=== PATIENT | male | born 1935 ===

== ENCOUNTER → 2016-09-01 | Outpatient (CLI) | payer OTHER | END | disposition home or self-care (01) | LOC: C.PATHSPEC 14:35 | PROVIDERS: ATTEND Dermatology | DX: L57.0 Actinic keratosis (principal) ==

== ENCOUNTER 2021-06-13 09:13 | Inpatient (IN) ==
--- NOTE | 2021-06-13 09:33 | Emergency Department Note ---
Impression & Plan Weakness, Fever, Influenza A, Acute alteration in mental status, Head injury, Thrombocytopenia, HOLDEN (acute kidney injury) ED Provider Note NAME: LEEANNE RIBERA AGE: 85 SEX: M : 1935 ARRIVES VIA: Ambulance INFORMANT: Patient, EMS ED PROVIDER(S): Arturo Lugo DO CHIEF COMPLAINT: Altered mental status HPI: The patient is an 85-year-old male who presented to the emergency department for an evaluation of altered mental status. The patient has a history of severe underlying dementia and is unable to provide most of the history. History was obtained from the prehospital personnel. According to the patient's report he had fallen yesterday. Today they noticed that he had a low- grade fever and was not acting appropriately. The patient normally is able to speak in full sentences but today is only giving 1 word answers and appears more confused than usual. The patient does not have any family members with him currently. The patient had no reported difficulty ambulating. He does not appear to have reported unilateral weakness. The patient has been compliant with his usual outpatient medications. It is unclear if he had a loss of consciousness. ROS: See above HPI for pertinent positives & negatives. A total of 10 systems reviewed and were otherwise negative. PAST MEDICAL HISTORY: See Below PAST SURGICAL HISTORY: See Below FAMILY HISTORY: See Below SOCIAL HISTORY: See Below HOME MEDICATIONS: See Below ALLERGIES: See Below VITALS: See Below PHYSICAL EXAMINATION: GENERAL: The patient is awake and looking around the room. Answers questions inappropriately and slowly. EYES: The conjunctivae are clear. The pupils are round and reactive. EARS, NOSE, MOUTH AND THROAT: The nose is without any evidence of any deformity. Mucous membranes are moist. NECK: The neck is nontender and supple. RESPIRATORY: Diminished breath sounds are noted in the left lung field. There was no definite rales rhonchi or wheezing. CARDIOVASCULAR: Tachycardic and regular heart sounds were noted to auscultation. There is no definite murmur. GASTROINTESTINAL: The abdomen is soft. Abdomen is nontender. MUSCULOSKELETAL/EXTREMITIES: There is no evidence of gross deformity full range of motion is noted in the hips and shoulders. SKIN: There is no obvious evidence of any rash. Trace pedal edema was noted bilaterally. Skin was warm. There is an abrasion on the top of the head with a dressing in place. NEUROLOGIC: Patient is awake and oriented to person only. Strength was di minished but symmetric. There was no facial droop. MEDICAL DECISION MAKING: The patient is an 85-year-old male who presented to the emergency department by ambulance for an evaluation of alteration of mental status and fever. The patient presented from his personal senior care. The patient also had a reported fall with a head injury. I discussed the patient's laboratory and radiographic studies with him and his significant other. He does have underlying dementia which appears to be worsening according to his significant other. No definite cause for his fever could be found. The patient was trying to ambulate but appears to have very significant difficulty with ambulation. Further radiographic studies were obtained but still no cause for the patient's presentation could be found. I discussed this case with the on-call [facility] hospitalist. They did ask for a flu swab which ultimately was positive. It is possible the patient's symptoms could be secondary to the flu. Given his age and comorbidities it was felt he may be a better candidate for inpatient management especially given the fact that the patient is still unable to walk. Triage Nursing notes reviewed. Prior medical records reviewed Vital Signs: reviewed and remarkable for tachycardia and fever. Differential diagnosis: Infection, hypoglycemia, electrolyte abnormalities, overdose, toxicologic, cardiac sources, intracerebral event, neurologic, trauma, as well as other pa thologies. ER treatment provided: See below Diagnostics interpreted by me: ECG: EKG was obtained in the emergency department. My interpretation is sinus tachycardia 112 bpm. PVCs were noted. Right bundle branch block pattern was noted. No previous tracing was available. Cardiac Monitoring: An order was placed for continuous cardiac monitoring. The monitor shows a rate of 100 bpm with sinus rhythm. Laboratory studies: As stated above and show below. Imaging studies: See below Consultation(s): I discussed this case with Dr. Alaniz who is on-call for the [facility] hospitalist group. They have agreed to evaluate the patient in the emergency department for further management and disposition. Past Med/Surg History Medical History (Updated 06/13/21 @ 17:09 by Arturo Lugo DO) GERD (gastroesophageal reflux disease) High cholesterol HTN (hypertension) Neurogenic claudication due to lumbar spinal stenosis Spinal stenosis of lumbar region Surgical History Surgical history unknown Family History Father Memory loss Social History Smoking Status: Never smoker Hx Alcohol Use: No Hx Substance Use: No Preferred Language: Marshallese Communication Ability: Effective Visual Impairment: Limited Hearing Ability: Hard of Hearing Beliefs That Will Affect Care: None marital status: Current Living Situation: Spouse current occupational status: retired Feels Safe at Home: Yes Allergies Allergies Allergy/AdvReac Type Severity Reaction Status Date / Time No Known Allergies Allergy Verified 06/13/21 10:39 Home Meds Home Medications Medication Instructions Recorded Confirmed cholecalciferol (vitamin D3) 50 2,000 unit PO DAILY cap 02/28/19 06/13/21 mcg (2,000 unit) capsule losartan 50 mg tablet 50 mg PO DAILY tab 07/23/19 06/13/21 bimatoprost 0.01 % eye drops 1 drops OP HS 01/10/20 06/13/21 (Gabriele) pantoprazole 40 mg tablet,delayed 40 mg PO DAILY 04/14/20 06/13/21 release furosemide 40 mg tablet (Lasix) 40 mg PO DAILY PRN 01/06/21 06/13/21 metoprolol tartrate 25 mg tablet 25 mg PO BID #60 tab 04/28/21 06/13/21 simvastatin 40 mg tablet 40 mg PO DAILY 04/28/21 06/13/21 albuterol sulfate 2.5 mg INHALATION Q4H PRN 06/13/21 06/13/21 albuterol sulfate 90 mcg/actuation 2 puff INHALATION Q4H PRN 06/13/21 06/13/21 aerosol inhaler ascorbic acid (vitamin C) 500 mg 500 mg PO DAILY 06/13/21 06/13/21 tablet (Vitamin C) benzonatate 200 mg capsule 200 mg PO TID PRN 06/13/21 06/13/21 mirtazapine 15 mg tablet 22.5 mg PO HS 06/13/21 06/13/21 timolol 0.5 % eye drops 1 drp OPHTHALMIC (EYE) DAILY 06/13/21 06/13/21 vit C 250 mg-vit E 90 mg-zinc 40 1 tab PO BID 06/13/21 06/13/21 mg-copper 1 [id number] capsule (PreserVision AREDS-2) Previous Rx's Medication Instructions Recorded memantine 28 mg capsule 28 mg PO DAILY #90 ea 04/16/21 sprinkle,extended release 24hr (Namenda XR) donepezil 10 mg tablet 10 mg PO HS 90 Days #90 tab 05/27/21 Results & Data (ED) Vital Signs Vital Signs - 24 hr 06/13/21 09:18 06/13/21 09:19 06/13/21 09:30 Temperature 37.9 C H Temperature Source Oral Pulse Rate 116 H 112 H 112 H Pulse Rate [Apical] Pulse Rate from SpO2 Sensor 113 H 111 H Respiratory Rate 30 H 28 H 30 H Respiratory Effort / Characteristics Non-Labored Spontaneous Respiratory Depth Normal Blood Pressure 119/82 Blood Pressure [Right Arm] Blood Pressure Mean 94 Blood Pressure Mean [Right Arm] Blood Pressure Position Sitting Blood Pressure Position [Right Arm] Pulse Oximetry 89 L 95 96 Oxygen Delivery Method Room Air Oxygen Flow Rate Sepsis Recent Fever Within 48 Hours Yes Sepsis New/Unexplained Change in Mental Status Yes Sepsis Action Taken by Nursing Physician Notified Oxygen Flow Rate - Titration 2 Fraction of Inspired Oxygen - Titration 96 06/13/21 09:45 06/13/21 10:00 06/13/21 10:15 Temperature Temperature Source Pulse Rate 115 H 107 H 103 H Pulse Rate [Apical] Pulse Rate from SpO2 Sensor 116 H 100 H Respiratory Rate 22 28 H Respiratory Effort / Characteristics Respiratory Depth Blood Pressure Blood Pressure [Right Arm] Blood Pressure Mean Blood Pressure Mean [Right Arm] Blood Pressure Position Blood Pressure Position [Right Arm] Pulse Oximetry 97 95 Oxygen Delivery Method Oxygen Flow Rate Sepsis Recent Fever Within 48 Hours Sepsis New/Unexplained Change in Mental Status Sepsis Action Taken by Nursing Oxygen Flow Rate - Titration Fraction of Inspired Oxygen - Titration 06/13/21 10:24 06/13/21 10:30 06/13/21 10:46 Temperature Temperature Source Pulse Rate 105 H 102 H 104 H Pulse Rate [Apical] Pulse Rate from SpO2 Sensor 101 H 103 H Respiratory Rate 29 H 27 H Respiratory Effort / Characteristics Respiratory Depth Blood Pressure Blood Pressure [Right Arm] Blood Pressure Mean Blood Pressure Mean [Right Arm] Blood Pressure Position Blood Pressure Position [Right Arm] Pulse Oximetry 95 95 97 Oxygen Delivery Method Nasal Cannula Oxygen Flow Rate 2 Sepsis Recent Fever Within 48 Hours Sepsis New/Unexplained Change in Mental Status Sepsis Action Taken by Nursing Oxygen Flow Rate - Titration Fraction of Inspired Oxygen - Titration 06/13/21 10:56 06/13/21 11:00 06/13/21 11:15 Temperature Temperature Source Pulse Rate 102 H 100 H Pulse Rate [Apical] 102 H Pulse Rate from SpO2 Sensor 103 H 90 Respiratory Rate 26 H 28 H 30 H Respiratory Effort / Characteristics Respiratory Depth Blood Pressure 117/62 Blood Pressure [Right Arm] 117/52 L Blood Pressure Mean 80 Blood Pressure Mean [Right Arm] 73 Blood Pressure Position Blood Pressure Position [Right Arm] Lying Pulse Oximetry 95 94 94 Oxygen Delivery Method Nasal Cannula Oxygen Flow Rate 2 Sepsis Recent Fever Within 48 Hours Sepsis New/Unexplained Change in Mental Status Sepsis Action Taken by Nursing Oxygen Flow Rate - Titration Fraction of Inspired Oxygen - Titration 06/13/21 11:30 06/13/21 11:45 06/13/21 12:00 Temperature Temperature Source Pulse Rate 111 H 99 H 102 H Pulse Rate [Apical] Pulse Rate from SpO2 Sensor 106 H 86 100 H Respiratory Rate 26 H 26 H 27 H Respiratory Effort / Characteristics Respiratory Depth Blood Pressure 116/64 95/65 L Blood Pressure [Right Arm] Blood Pressure Mean 81 75 Blood Pressure Mean [Right Arm] Blood Pressure Position Blood Pressure Position [Right Arm] Pulse Oximetry 94 93 94 Oxygen Delivery Method Oxygen Flow Rate Sepsis Recent Fever Within 48 Hours Sepsis New/Unexplained Change in Mental Status Sepsis Action Taken by Nursing Oxygen Flow Rate - Titration Fraction of Inspired Oxygen - Titration 06/13/21 12:15 06/13/21 12:30 06/13/21 12:45 Temperature Temperature Source Pulse Rate 103 H 99 H 96 H Pulse Rate [Apical] Pulse Rate from SpO2 Sensor 101 H 92 H 94 H Respiratory Rate 23 29 H 28 H Respiratory Effort / Characteristics Non-Labored Spontaneous Respiratory Depth Blood Pressure 115/55 L Blood Pressure [Right Arm] Blood Pressure Mean 75 Blood Pressure Mean [Right Arm] Blood Pressure Position Blood Pressure Position [Right Arm] Pulse Oximetry 96 94 95 Oxygen Delivery Method Room Air Room Air Oxygen Flow Rate 2 Sepsis Recent Fever Within 48 Hours Sepsis New/Unexplained Change in Mental Status Sepsis Action Taken by Nursing Oxygen Flow Rate - Titration Fraction of Inspired Oxygen - Titration 06/13/21 13:00 06/13/21 13:15 06/13/21 13:30 Temperature Temperature Source Pulse Rate 92 H 110 H 99 H Pulse Rate [Apical] Pulse Rate from SpO2 Sensor 90 112 H 101 H Respiratory Rate 26 H 17 25 H Respiratory Effort / Characteristics Respiratory Depth Blood Pressure 99/56 L Blood Pressure [Right Arm] Blood Pressure Mean 70 Blood Pressure Mean [Right Arm] Blood Pressure Position Blood Pressure Position [Right Arm] Pulse Oximetry 96 98 95 Oxygen Delivery Method Room Air Room Air Room Air Oxygen Flow Rate Sepsis Recent Fever Within 48 Hours Sepsis New/Unexplained Change in Mental Status Sepsis Action Taken by Nursing Oxygen Flow Rate - Titration Fraction of Inspired Oxygen - Titration 06/13/21 13:45 06/13/21 14:00 06/13/21 14:15 Temperature Temperature Source Pulse Rate 100 H 92 H 96 H Pulse Rate [Apical] Pulse Rate from SpO2 Sensor 102 H 91 H 101 H Respiratory Rate 27 H 26 H 29 H Respiratory Effort / Characteristics Respiratory Depth Blood Pressure Blood Pressure [Right Arm] Blood Pressure Mean Blood Pressure Mean [Right Arm] Blood Pressure Position Blood Pressure Position [Right Arm] Pulse Oximetry 91 91 91 Oxygen Delivery Method Room Air Room Air Room Air Oxygen Flow Rate Sepsis Recent Fever Within 48 Hours Sepsis New/Unexplained Change in Mental Status Sepsis Action Taken by Nursing Oxygen Flow Rate - Titration Fraction of Inspired Oxygen - Titration 06/13/21 14:30 06/13/21 15:00 06/13/21 15:15 Temperature Temperature Source Pulse Rate 106 H 103 H 96 H Pulse Rate [Apical] Pulse Rate from SpO2 Sensor 133 H 102 H 98 H Respiratory Rate 18 18 24 Respiratory Effort / Characteristics Respiratory Depth Blood Pressure 108/73 103/69 Blood Pressure [Right Arm] Blood Pressure Mean 84 80 Blood Pressure Mean [Right Arm] Blood Pressure Position Blood Pressure Position [Right Arm] Pulse Oximetry 95 96 96 Oxygen Delivery Method Room Air Room Air Oxygen Flow Rate Sepsis Recent Fever Within 48 Hours Sepsis New/Unexplained Change in Mental Status Sepsis Action Taken by Nursing Oxygen Flow Rate - Titration Fraction of Inspired Oxygen - Titration 06/13/21 15:30 Temperature Temperature Source Pulse Rate 100 H Pulse Rate [Apical] Pulse Rate from SpO2 Sensor 99 H Respiratory Rate 28 H Respiratory Effort / Characteristics Respiratory Depth Blood Pressure 116/71 Blood Pressure [Right Arm] Blood Pressure Mean 86 Blood Pressure Mean [Right Arm] Blood Pressure Position Blood Pressure Position [Right Arm] Pulse Oximetry 96 Oxygen Delivery Method Room Air Oxygen Flow Rate Sepsis Recent Fever Within 48 Hours Sepsis New/Unexplained Change in Mental Status Sepsis Action Taken by Nursing Oxygen Flow Rate - Titration Fraction of Inspired Oxygen - Titration Home Medications Current Medication List: was personally reviewed by ga Laboratory Data Attestation: I reviewed the patient's lab results. Result diagrams: 06/13/21 09:38 06/13/21 09:38 Lab Results 06/13/21 06/13/21 06/13/21 Range/Units 09:38 09:38 09:38 WBC 10.03 (4.8-10.8) K/uL RBC 4.49 L (4.7-6.1) M/uL Hgb 14.2 (14.0-18.0) g/dL Hct 42.1 (42-52) % MCV 93.8 (80-100) fL MCH 31.6 (25-34) pg MCHC 33.7 (32-36) g/dL RDW Std Deviation 47.4 H (36.4-46.3) fL RDW Coeff of Juan Carlos 13.7 (11.5-14.5) % Plt Count 120 L (130-400) K/uL MPV 10.0 (7.4-10.4) fL Immature Gran % (Auto) 0.2 % Neut % (Auto) 86.8 % Lymph % (Auto) 5.2 % [place] % (Auto) 7.8 % Eos % (Auto) 0.0 % Baso % (Auto) 0.0 % Neut # (Auto) 8.71 H (1.4-6.5) K/uL Lymph # (Auto) 0.52 L (1.2-3.4) K/uL [place] # (Auto) 0.78 H (0.11-0.59) K/uL Eos # (Auto) 0.00 (0-0.5) K/uL Baso # (Auto) 0.00 (0-0.2) K/uL Immature Gran # (Auto) 0.02 (0.00-0.02) K/uL PT 10.9 (9.0-12.0) Seconds INR 1.1 (0.9-1.1) APTT 33.7 H (21.0-31.0) Seconds PTT Ratio 1.3 Sodium 138 (136-145) mmol/L Potassium 4.2 (3.5-5.1) mmol/L Chloride 103 (98-107) mmol/L Carbon Dioxide 25 (21-32) mmol/L Anion Gap 10.0 (3-11) BUN 27 H (7-18) mg/dl Creatinine 1.63 H (0.6-1.4) mg/dl Est Cr Clr Drug Dosing Not Reportable Est GFR ( Amer) 43.9 ml/min Est GFR (Non-Af Amer) 37.8 ml/min BUN/Creatinine Ratio 16.6 (10-20) Glucose 119 H (70-99) mg/dl Lactate (0.4-2.0) mmol/L Calcium 8.9 (8.5-10.1) mg/dl Magnesium 1.9 (1.8-2.4) mg/dl Total Bilirubin 0.8 (0.2-1) mg/dl AST 27 (15-37) U/L ALT 26 (12-78) U/L Alkaline Phosphatase 83 (45-117) U/L Troponin I < 0.015 (0-0.045) ng/ml Total Protein 7.0 (6.4-8.2) gm/dl Albumin 3.2 L (3.4-5.0) gm/dl Globulin 3.8 (2.5-4.0) gm/dl Albumin/Globulin Ratio 0.8 L (0.9-2) Procalcitonin (0-0.5) ng/ml Urine Color Urine Appearance (Clear) Urine pH (4.5-7.5) Ur Specific [place] (1.000-1.030) Urine Protein (Negative) Urine Glucose (UA) (Negative) Urine Ketones (Negative) Urine Blood (Negative) Urine Nitrite (Negative) Urine Bilirubin (Negative) Urine Urobilinogen (Negative) Ur Leukocyte Esterase (Negative) Urine WBC (Auto) (0-5) /hpf Urine RBC (Auto) (0-4) /hpf U Hyaline Cast (Auto) (0-5) /lpf U Epithel Cells (Auto) (0-5) /lpf Urine Bacteria (Auto) (Negative) SARS-CoV-2 (PCR) (Negative) Influ A Molecular Assay (Negative) Influ B Molecular Assay (Negative) 06/13/21 06/13/21 06/13/21 Range/Units 09:38 09:38 09:38 WBC (4.8-10.8) K/uL RBC (4.7-6.1) M/uL Hgb (14.0-18.0) g/dL Hct (42-52) % MCV (80-100) fL MCH (25-34) pg MCHC (32-36) g/dL RDW Std Deviation (36.4-46.3) fL RDW Coeff of Juan Carlos (11.5-14.5) % Plt Count (130-400) K/uL MPV (7.4-10.4) fL Immature Gran % (Auto) % Neut % (Auto) % Lymph % (Auto) % [place] % (Auto) % Eos % (Auto) % Baso % (Auto) % Neut # (Auto) (1.4-6.5) K/uL Lymph # (Auto) (1.2-3.4) K/uL [place] # (Auto) (0.11-0.59) K/uL Eos # (Auto) (0-0.5) K/uL Baso # (Auto) (0-0.2) K/uL Immature Gran # (Auto) (0.00-0.02) K/uL PT (9.0-12.0) Seconds INR (0.9-1.1) APTT (21.0-31.0) Seconds PTT Ratio Sodium (136-145) mmol/L Potassium (3.5-5.1) mmol/L Chloride (98-107) mmol/L Carbon Dioxide (21-32) mmol/L Anion Gap (3-11) BUN (7-18) mg/dl Creatinine (0.6-1.4) mg/dl Est Cr Clr Drug Dosing Est GFR ( Amer) ml/min Est GFR (Non-Af Amer) ml/min BUN/Creatinine Ratio (10-20) Glucose (70-99) mg/dl Lactate 1.8 (0.4-2.0) mmol/L Calcium (8.5-10.1) mg/dl Magnesium (1.8-2.4) mg/dl Total Bilirubin (0.2-1) mg/dl AST (15-37) U/L ALT (12-78) U/L Alkaline Phosphatase (45-117) U/L Troponin I (0-0.045) ng/ml Total Protein (6.4-8.2) gm/dl Albumin (3.4-5.0) gm/dl Globulin (2.5-4.0) gm/dl Albumin/Globulin Ratio (0.9-2) Procalcitonin 0.21 (0-0.5) ng/ml Urine Color Urine Appearance (Clear) Urine pH (4.5-7.5) Ur Specific [place] (1.000-1.030) Urine Protein (Negative) Urine Glucose (UA) (Negative) Urine Ketones (Negative) Urine Blood (Negative) Urine Nitrite (Negative) Urine Bilirubin (Negative) Urine Urobilinogen (Negative) Ur Leukocyte Esterase (Negative) Urine WBC (Auto) (0-5) /hpf Urine RBC (Auto) (0-4) /hpf U Hyaline Cast (Auto) (0-5) /lpf U Epithel Cells (Auto) (0-5) /lpf Urine Bacteria (Auto) (Negative) SARS-CoV-2 (PCR) NEGATIVE (Negative) Influ A Molecular Assay (Negative) Influ B Molecular Assay (Negative) 06/13/21 06/13/21 Range/Units 10:57 15:37 WBC (4.8-10.8) K/uL RBC (4.7-6.1) M/uL Hgb (14.0-18.0) g/dL Hct (42-52) % MCV (80-100) fL MCH (25-34) pg MCHC (32-36) g/dL RDW Std Deviation (36.4-46.3) fL RDW Coeff of Juan Carlos (11.5-14.5) % Plt Count (130-400) K/uL MPV (7.4-10.4) fL Immature Gran % (Auto) % Neut % (Auto) % Lymph % (Auto) % [place] % (Auto) % Eos % (Auto) % Baso % (Auto) % Neut # (Auto) (1.4-6.5) K/uL Lymph # (Auto) (1.2-3.4) K/uL [place] # (Auto) (0.11-0.59) K/uL Eos # (Auto) (0-0.5) K/uL Baso # (Auto) (0-0.2) K/uL Immature Gran # (Auto) (0.00-0.02) K/uL PT (9.0-12.0) Seconds INR (0.9-1.1) APTT (21.0-31.0) Seconds PTT Ratio Sodium (136-145) mmol/L Potassium (3.5-5.1) mmol/L Chloride (98-107) mmol/L Carbon Dioxide (21-32) mmol/L Anion Gap (3-11) BUN (7-18) mg/dl Creatinine (0.6-1.4) mg/dl Est Cr Clr Drug Dosing Est GFR ( Amer) ml/min Est GFR (Non-Af Amer) ml/min BUN/Creatinine Ratio (10-20) Glucose (70-99) mg/dl Lactate (0.4-2.0) mmol/L Calcium (8.5-10.1) mg/dl Magnesium (1.8-2.4) mg/dl Total Bilirubin (0.2-1) mg/dl AST (15-37) U/L ALT (12-78) U/L Alkaline Phosphatase (45-117) U/L Troponin I (0-0.045) ng/ml Total Protein (6.4-8.2) gm/dl Albumin (3.4-5.0) gm/dl Globulin (2.5-4.0) gm/dl Albumin/Globulin Ratio (0.9-2) Procalcitonin (0-0.5) ng/ml Urine Color Dark Yellow Urine Appearance Cloudy A (Clear) Urine pH 5.0 (4.5-7.5) Ur Specific [place] 1.020 (1.000-1.030) Urine Protein 3+ H (Negative) Urine Glucose (UA) Negative (Negative) Urine Ketones 1+ H (Negative) Urine Blood Trace H (Negative) Urine Nitrite Negative (Negative) Urine Bilirubin Negative (Negative) Urine Urobilinogen Negative (Negative) Ur Leukocyte Esterase Negative (Negative) Urine WBC (Auto) 1-5 (0-5) /hpf Urine RBC (Auto) 0-4 (0-4) /hpf U Hyaline Cast (Auto) 1-5 (0-5) /lpf U Epithel Cells (Auto) 5-10 H (0-5) /lpf Urine Bacteria (Auto) Negative (Negative) SARS-CoV-2 (PCR) (Negative) Influ A Molecular Assay Positive A* (Negative) Influ B Molecular Assay Negative (Negative) Administered Medications Discontinued Medications Sodium Chloride (Nss 1000ml) 1,000 mls @ 999 mls/hr IV .[id number] ONE Stop: 06/13/21 13:11 Last Infusion: 06/13/21 13:16 Dose: 0 mls/hr Documented by: [id number] Admin: 06/13/21 12:15 Dose: 999 mls/hr Documented by: [id number] Acetaminophen (Ofirmev) 1,000 mg in 100 mls @ 400 mls/hr IV NOW STA Stop: 06/13/21 16:20 Last Infusion: 06/13/21 16:31 Dose: 0 mls/hr Documented by: [id number] Admin: 06/13/21 16:16 Dose: 400 mls/hr Documented by: [id number] Imaging Data Radiologist's Impression: Cervical Spine CT 06/13/21 09:21 CT cervical spine wo con CLINICAL HISTORY: Status post fall yesterday with abrasion to the head. Neck pain. Difficulty ambulating. COMPARISON STUDY: No previous studies for comparison. CT DOSE: 977.79 mGy.cm TECHNIQUE: Standard CT of the Cervical Spine was performed without IV contrast. A dose lowering technique was utilized adhering to the principles of ALARA. FINDINGS: Bones: Bones are osteopenic. There is no evidence for an acute fracture or malalignment. The heights of the vertebral bodies are maintained. The vertebral bodies are in anatomic alignment. The odontoid is intact. Degenerative changes are seen at the atlantoaxial articulation. Disc spaces:Moderate to marked disc space narrowing is present from C3 through C7 with endplate sclerosis and osteophyte formation. Apophyseal joints:Degenerative apophyseal joint disease is also seen throughout the cervical spine. Soft tissues:The prevertebral soft tissues are within normal limits. IMPRESSION: No acute abnormality. Degenerative disc and degenerative joint disease. ACT 112: Negative or not required by law. Electronically signed by: Lawrence Franklin M.D. 06/13/2021 10:20 AM Chest X-Ray 06/13/21 09:21 XR chest 1V portable CLINICAL HISTORY: SEPSIS. Evaluate cardiopulmonary status COMPARISON STUDY: No previous studies for comparison. TECHNIQUE: 1 view of the chest FINDINGS: Single frontal view of the chest demonstrates the cardiomediastinal silhouette to be within normal limits. There is a decreased inspiratory effort with elevation of the hemidiaphragms and crowding of the bronchovascular markings at the lung bases and centrally. The lungs are clear of alveolar opacities. There is no evidence for pleural effusion. There is no evidence for vascular congestion. There is no acute osseous pathology. IMPRESSION: There is a decreased inspiratory effort with otherwise no acute c hest disease. ACT 112: Negative or not required by law. Electronically signed by: Lawrence Franklin M.D. 06/13/2021 9:[address] 06/13/21 09:21 CT head/brain wo con CLINICAL HISTORY: Status post fall yesterday with abrasion to the top of the head. Difficulty ambulating. Pain. COMPARISON STUDY: No previous studies for comparison. TECHNIQUE: Standard CT of the Brain was performed without IV contrast. A dose lowering technique was utilized adhering to the principles of ALARA. FINDINGS: Extraaxial space: There is no evidence for subdural hematoma. There are no extra-axial fluid collections. Ventricles and cisterns: The ventricles are mildly to moderately dilated bilaterally. There is no evidence for midline shift or mass effect. Parenchyma: There is no subarachnoid or intraparenchymal hemorrhage. There is no evidence for an acute infarct or cerebral edema. There is mild cerebral cortical atrophy and decreased attenuation in the periventricular white matter representing remote small vessel disease. There are no gross mass lesions. Osseous structures: There is no evidence for an acute fracture. The visualized paranasal sinuses are clear. The mastoid air cells are clear bilaterally. Soft tissues: There is no evidence for focal soft tissue swelling. IMPRESSION: No acute intracerebral pathology. 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 ACT 112: Negative or not required by law. Electronically signed by: Lawrence Franklin M.D. 06/13/2021 10:18 AM Pelvis X-Ray 06/13/21 09:21 XR pelvis 1-2V routine CLINICAL HISTORY: Status post fall with pain. COMPARISON STUDY: No previous studies for comparison. TECHNIQUE: [A single AP radiograph was obtained. FINDINGS: There is no evidence for an acute fracture. There is mild narrowing hip joint spaces bilaterally. The bones are in anatomic alignment. The SI joints are intact bilaterally. The remaining visualized bones of the pelvis are intact. No focal soft tissue abnormalities identified. IMPRESSION: No acute abnormality. Mild hip joint space narrowing. ACT 112: Negative or not required by law. Electronically signed by: Lawrence Franklin M.D. 06/13/2021 9:[address] 06/13/21 13:58 CT lumbar spine wo con CLINICAL HISTORY: Status post fall with back pain COMPARISON STUDY: No previous studies for comparison. TECHNIQUE: Standard CT of the Lumbar Spine was performed without IV contrast. A dose lowering technique was utilized adhering to the principles of ALARA. FINDINGS: Bones: Bones are osteopenic. There is evidence for an old compression fracture of the L2 vertebral body. There is no evidence for an acute fracture or malalignment. The heights of the remaining lumbar vertebral bodies are maintained. The vertebral bodies are in anatomic alignment. Disc spaces: There is marked disc space narrowing at T12-L1, L4-L5 and L5-is 1 with vacuum disc phenomena present. No gross disc protrusion/herniation can be identified. Facet joints: Hypertrophic facet joint disease seen particularly at the lower 2 disc space levels. The sacroiliac joints are intact bilaterally. Soft tissues: The prevertebral soft tissues are within normal limits. IMPRESSION: 1. Osteopenia with old compression fracture of L2. No acute compression fracture. 2. 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 ACT 112: Negative or not required by law. Electronically signed by: Lawrence Franklin M.D. 06/13/2021 3:21 PM Abdomen/Pelvis CT 06/13/21 13:59 CT abd pelvis wo con CLINICAL HISTORY: Status post fall with back pain COMPARISON STUDY: No previous studies for comparison. CT DOSE: 371.60 mGy.cm TECHNIQUE: Standard CT of the Abdomen and Pelvis was performed without IV contrast. The patient did not receive oral contrast. A dose lowering technique was utilized adhering to the principles of ALARA. FINDINGS: Lung base: There is dependent edema in both lung bases along with mild bibasilar atelectasis. The heart is mildly enlarged with coronary artery calcification. Abdominal cavity: There is no evidence for abdominal mass, adenopathy or ascites. Liver: The liver is homogeneous in attenuation on these limited noncontrast images.. Spleen: The spleen is homogeneous in attenuation on these limited noncontrast images. Pancreas: The pancreas is homogeneous in attenuation on these limited noncontrast images. Gall Bladder: The gallbladder is well distended with no evidence for cholelithiasis, wall thickening or pericholecystic edema.. Adrenal glands: The adrenal glands are normal in size and attenuation on these limited noncontrast images. Kidneys: The kidneys are homogeneous in attenuation on these limited noncontrast images. There is no evidence for gross renal mass, calculus or hydronephrosis bilaterally. Bowel: There is a small hiatal hernia. The bowel loops are normally placed within the abdomen and pelvis without evidence for dilatation or obstruction. There is no evidence for mass lesion. There are no inflammatory changes present. There is no evidence for free air. There is a normal appendix in the right lower quadrant. Bladder: There is no evidence for focal bladder wall thickening, calculus or diverticulum. : There is no evidence for pelvic mass or adenopathy. Prostate is mildly enlarged. Vasculature: There is no evidence for focal aneurysmal dilatation of the abdominal aorta. Mild atherosclerotic calcification is present. Osseous structures: Degenerative changes are seen within the lumbar spine. Please see separate CT lumbar spine report for further evaluation. IMPRESSION: 1. No acute intra-abdominal or pelvic abnormality on these limited noncontrast images. 2. Nonacute findings as delineated above. 3. Please see CT of the lumbar spine report for further evaluation. ACT 112: Negative or not required by law. Electronically signed by: Lawrence Franklin M.D. 06/13/2021 3:17 PM Discharge Plan Visit Data Chief Complaint: Weakness Stated Complaint: DECREASE MENTAL STATUS/LOC, ED Provider: Arturo Lugo Discharge Problem: Weakness, Fever, Influenza A, Acute alteration in mental status, Head injury, Thrombocytopenia, HOLDEN (acute kidney injury) Patient Disposition: Being Evaluated by Hospitalist Forms Stand Alone Forms: [facility] Prescriptions Prescriptions: No Action memantine [Namenda XR] 28 mg capsule,sprinkle,ER 24hr 28 mg PO DAILY Qty: 90 RF: 1 donepezil 10 mg tablet 10 mg PO HS 90 Days Qty: 90 RF: 1 cholecalciferol (vitamin D3) 2,000 unit capsule 2,000 unit PO DAILY RF: 0 losartan 50 mg tablet 50 mg PO DAILY RF: 0 metoprolol tartrate 25 mg tablet 25 mg PO BID Qty: 60 RF: 0 simvastatin 40 mg tablet 40 mg PO DAILY RF: 0 pantoprazole 40 mg tablet,delayed release (DR/EC) 40 mg PO DAILY RF: 0 furosemide [Lasix] 40 mg tablet 40 mg PO DAILY PRN (Reason: Fluid Retention) RF: 0 Lumigan 0.01 % drops 1 drops OP HS RF: 0 albuterol sulfate 2.5 mg /3 mL (0.083 %) Solution For Nebulization 2.5 mg INHALATION Q4H PRN (Reason: Shortness Of Breath Or Wheezing) RF: 0 benzonatate [Tessalon] 200 mg Capsule 200 mg PO TID PRN (Reason: Cough) RF: 0 ascorbic acid (vitamin C) [Vitamin C] 500 mg Tablet 500 mg PO DAILY RF: 0 timolol 0.5 % Drops 1 drp OPHTHALMIC (EYE) DAILY RF: 0 albuterol sulfate 90 mcg/actuation Hfa Aerosol Inhaler 2 puff INHALATION Q4H PRN (Reason: Shortness Of Breath Or Wheezing) RF: 0 PreserVision AREDS-2 250-90-40-1 mg Capsule 1 tab PO BID RF: 0 mirtazapine 15 mg tablet 22.5 mg PO HS RF: 0 Referrals Referrals: Henrry Brito D.O. [Primary Care Provider] -
[2021-06-13 09:52] LABS: Hematocrit (blood only) 42.1 % (42-52); Hemoglobin 14.2 g/dL (14.0-18.0); Immature Granulocytes # (auto) 0.02 K/uL (0.00-0.02); Immature Granulocytes % (auto) 0.2 %; Lymphocytes # (auto) 0.52 K/uL (1.2-3.4); Lymphocytes % (auto) 5.2 %; Mean Corpuscular Hemoglobin 31.6 pg (25-34); Mean Corpuscular Hgb Conc 33.7 g/dL (32-36); Mean Corpuscular Volume 93.8 fL (80-100); Monocytes # (auto) 0.78 K/uL (0.11-0.59); Monocytes % (auto) 7.8 %; Neutrophils # (auto) 8.71 K/uL (1.4-6.5); Neutrophils % (auto) 86.8 %; Platelet Count 120 K/uL (130-400); RDW Coefficient of Variation 13.7 % (11.5-14.5); RDW Standard Deviation 47.4 fL (36.4-46.3); Red Blood Count 4.49 M/uL (4.7-6.1); White Blood Count 10.03 K/uL (4.8-10.8)
--- NOTE | 2021-06-13 09:55 | XRay Report ---
XR chest 1V portable CLINICAL HISTORY: SEPSIS. Evaluate cardiopulmonary status COMPARISON STUDY: No previous studies for comparison. TECHNIQUE: 1 view of the chest FINDINGS: Single frontal view of the chest demonstrates the cardiomediastinal silhouette to be within normal li mits. There is a decreased inspiratory effort with elevation of the hemidiaphragms and crowding of th e bronchovascular markings at the lung bases and centrally. The lungs are clear of alveolar opacities . There is no evidence for pleural effusion. There is no evidence for vascular congestion. There is n o acute osseous pathology. IMPRESSION: There is a decreased inspiratory effort with otherwise no acute chest disease. ACT 112: Negative or not required by law. Electronically signed by: Lawrence Franklin M.D. 06/13/2021 9:53 AM
--- NOTE | 2021-06-13 09:58 | XRay Report ---
XR pelvis 1-2V routine CLINICAL HISTORY: Status post fall with pain. COMPARISON STUDY: No previous studies for comparison. TECHNIQUE: [A single AP radiograph was obtained. FINDINGS: There is no evidence for an acute fracture. There is mild narrowing hip joint spaces bilaterally. The bones are in anatomic alignment. The SI joints are intact bilaterally. The remaining visualized bone s of the pelvis are intact. No focal soft tissue abnormalities identified. IMPRESSION: No acute abnormality. Mild hip joint space narrowing. ACT 112: Negative or not required by law. Electronically signed by: Lawrence Franklin M.D. 06/13/2021 9:57 AM
[2021-06-13 10:09] LABS: INR 1.1 (0.9-1.1); Partial Thromboplastin Ratio 1.3; Partial Thromboplastin Time 33.7 Seconds (21.0-31.0); Prothrombin Time 10.9 Seconds (9.0-12.0)
[2021-06-13 10:12] LABS: Alanine Aminotransferase 26 U/L (12-78); Albumin Level 3.2 gm/dl (3.4-5.0); Aspartate Aminotransferase 27 U/L (15-37); BUN Creatinine Ratio 16.6 (10-20); Blood Urea Nitrogen 27 mg/dl (7-18); Calcium 8.9 mg/dl (8.5-10.1); Carbon Dioxide 25 mmol/L (21-32); Chloride 103 mmol/L (98-107); Est GFR (African American) 43.9 ml/min; Est GFR (Non-African American) 37.8 ml/min; Glucose 119 mg/dl (70-99); Magnesium 1.9 mg/dl (1.8-2.4); Potassium 4.2 mmol/L (3.5-5.1); Sodium 138 mmol/L (136-145)
[2021-06-13 10:17] LABS: Albumin Globulin Ratio 0.8 (0.9-2); Alkaline Phosphatase 83 U/L (45-117); Bilirubin,Total 0.8 mg/dl (0.2-1); Globulin 3.8 gm/dl (2.5-4.0); Troponin I < 0.015 ng/ml (0-0.045)
--- NOTE | 2021-06-13 10:19 | CT Scan Report ---
CT head/brain wo con CLINICAL HISTORY: Status post fall yesterday with abrasion to the top of the head. Difficulty ambulat ing. Pain. COMPARISON STUDY: No previous studies for comparison. TECHNIQUE: Standard CT of the Brain was performed without IV contrast. A dose lowering technique was utilized adhering to the principles of ALARA. FINDINGS: Extraaxial space: There is no evidence for subdural hematoma. There are no extra-axial fluid collecti ons. Ventricles and cisterns: The ventricles are mildly to moderately dilated bilaterally. There is no ev idence for midline shift or mass effect. Parenchyma: There is no subarachnoid or intraparenchymal hemorrhage. There is no evidence for an acu te infarct or cerebral edema. There is mild cerebral cortical atrophy and decreased attenuation in th e periventricular white matter representing remote small vessel disease. There are no gross mass lesi ons. Osseous structures: There is no evidence for an acute fracture. The visualized paranasal sinuses are clear. The mastoid air cells are clear bilaterally. Soft tissues: There is no evidence for focal soft tissue swelling. IMPRESSION: No acute intracerebral pathology. 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 ACT 112: Negative or not required by law. Electronically signed by: Lawrence Franklin M.D. 06/13/2021 10:18 AM
--- NOTE | 2021-06-13 10:21 | CT Scan Report ---
CT cervical spine wo con CLINICAL HISTORY: Status post fall yesterday with abrasion to the head. Neck pain. Difficulty ambulat ing. COMPARISON STUDY: No previous studies for comparison. CT DOSE: 977.79 mGy.cm TECHNIQUE: Standard CT of the Cervical Spine was performed without IV contrast. A dose lowering te chnique was utilized adhering to the principles of ALARA. FINDINGS: Bones: Bones are osteopenic. There is no evidence for an acute fracture or malalignment. The heights of the vertebral bodies are maintained. The vertebral bodies are in anatomic alignment. The odontoid is intact. Degenerative changes are seen at the atlantoaxial articulation. Disc spaces:Moderate to marked disc space narrowing is present from C3 through C7 with endplate scler osis and osteophyte formation. Apophyseal joints:Degenerative apophyseal joint disease is also seen throughout the cervical spine. Soft tissues:The prevertebral soft tissues are within normal limits. IMPRESSION: No acute abnormality. Degenerative disc and degenerative joint disease. ACT 112: Negative or not required by law. Electronically signed by: Lawrence Franklin M.D. 06/13/2021 10:20 AM
--- NOTE | 2021-06-13 10:44 | Electrocardiogram Report ---
Test Reason : Blood Pressure : / mmHG Vent. Rate : 112 BPM Atrial Rate : 112 BPM P-R Int : 132 ms QRS Dur : 136 ms QT Int : 360 ms P-R-T Axes : 043 -87 -09 degrees QTc Int : 491 ms Sinus tachycardia with occasional Premature ventricular complexes Left axis deviation Right bundle branch block Abnormal ECG No previous ECGs available Confirmed by Juan Diego Garcia ([id number]) on 06/13/2021 10:44:32 AM Referred By: NO PCP Confirmed By:Santos Garcia
[2021-06-13 11:06] LABS: Appearance Urine Cloudy (Clear); Bacteria Urine Automated Negative (Negative); Bilirubin Urine Negative (Negative); Blood Urine Trace (Negative); Color Urine Dark Yellow; Glucose Urine UA Negative (Negative); Ketones Urine 1+ (Negative); Leukocyte Esterase Urine Negative (Negative); Nitrite Urine Negative (Negative); Protein Urine 3+ (Negative); RBC Urine Automated 0-4 /hpf (0-4); Urobilinogen Urine Negative (Negative)
[2021-06-13] MEDS ORDERED: SODIUM CHLORIDE 0.9% 1000ML 1,000 ML IV ONE (12:11)
--- NOTE | 2021-06-13 15:18 | CT Scan Report ---
CT abd pelvis wo con CLINICAL HISTORY: Status post fall with back pain COMPARISON STUDY: No previous studies for comparison. CT DOSE: 371.60 mGy.cm TECHNIQUE: Standard CT of the Abdomen and Pelvis was performed without IV contrast. The patient did not receive oral contrast. A dose lowering technique was utilized adhering to the principles of JUANJO Hutchinson. FINDINGS: Lung base: There is dependent edema in both lung bases along with mild bibasilar atelectasis. The he art is mildly enlarged with coronary artery calcification. Abdominal cavity: There is no evidence for abdominal mass, adenopathy or ascites. Liver: The liver is homogeneous in attenuation on these limited noncontrast images.. Spleen: The spleen is homogeneous in attenuation on these limited noncontrast images. Pancreas: The pancreas is homogeneous in attenuation on these limited noncontrast images. Gall Bladder: The gallbladder is well distended with no evidence for cholelithiasis, wall thickening or pericholecystic edema.. Adrenal glands: The adrenal glands are normal in size and attenuation on these limited noncontrast im ages. Kidneys: The kidneys are homogeneous in attenuation on these limited noncontrast images. There is no evidence for gross renal mass, calculus or hydronephrosis bilaterally. Bowel: There is a small hiatal hernia. The bowel loops are normally placed within the abdomen and pel vis without evidence for dilatation or obstruction. There is no evidence for mass lesion. There are n o inflammatory changes present. There is no evidence for free air. There is a normal appendix in the right lower quadrant. Bladder: There is no evidence for focal bladder wall thickening, calculus or diverticulum. : There is no evidence for pelvic mass or adenopathy. Prostate is mildly enlarged. Vasculature: There is no evidence for focal aneurysmal dilatation of the abdominal aorta. Mild athero sclerotic calcification is present. Osseous structures: Degenerative changes are seen within the lumbar spine. Please see separate CT lum bar spine report for further evaluation. IMPRESSION: 1. No acute intra-abdominal or pelvic abnormality on these limited noncontrast images. 2. Nonacute findings as delineated above. 3. Please see CT of the lumbar spine report for further evaluation. ACT 112: Negative or not required by law. Electronically signed by: Lawrence Franklin M.D. 06/13/2021 3:17 PM
--- NOTE | 2021-06-13 15:22 | CT Scan Report ---
CT lumbar spine wo con CLINICAL HISTORY: Status post fall with back pain COMPARISON STUDY: No previous studies for comparison. TECHNIQUE: Standard CT of the Lumbar Spine was performed without IV contrast. A dose lowering techni que was utilized adhering to the principles of ALARA. FINDINGS: Bones: Bones are osteopenic. There is evidence for an old compression fracture of the L2 vertebral ravin dy. There is no evidence for an acute fracture or malalignment. The heights of the remaining lumbar v ertebral bodies are maintained. The vertebral bodies are in anatomic alignment. Disc spaces: There is marked disc space narrowing at T12-L1, L4-L5 and L5-is 1 with vacuum disc pheno montemayor present. No gross disc protrusion/herniation can be identified. Facet joints: Hypertrophic facet joint disease seen particularly at the lower 2 disc space levels. Th e sacroiliac joints are intact bilaterally. Soft tissues: The prevertebral soft tissues are within normal limits. IMPRESSION: 1. Osteopenia with old compression fracture of L2. No acute compression fracture. 2. 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 ACT 112: Negative or not required by law. Electronically signed by: Lawrence Franklin M.D. 06/13/2021 3:21 PM
[2021-06-13 16:00] LABS: Influenza A virus by PCR Positive (Negative); Influenza B virus by PCR Negative (Negative)
--- NOTE | 2021-06-13 16:03 | History & Physical Report ---
Date of Service June 13, 2021 Assessment & Plan (1) Influenza A: Plan: Presents with fever, lethargy, acute encephalopathy Lives in a dementia unit at a personal care facility -Admit to medical/surgical floor on isolation precautions for influenza -Supportive care with supplemental O2 as needed keep pulse ox greater than 92%, acetaminophen as needed for fevers, IV fluids for hydration -Start Tamiflu to be renally dosed at 30 mg p.o. twice daily -Advance diet as tolerated (2) Acute encephalopathy: Plan: As above, secondary to influenza A, febrile illness, and likely some dehydration given elevated creatinine and BUN all in the setting of advanced dementia Hydrating with IV fluids Treating with supportive care and Tamiflu for influenza as above Watch also for sundowning which he already has issues with as per neurology notes (3) Fever: Plan: Secondary to influenza A as above Covid-19 test is negative Blood cultures drawn and pending Urinalysis and chest x-ray negative CT of the abdomen/pelvis negative for infection CT head negative for intracranial hemorrhage No evidence of DVT on examination -No antibiotics needed at this point (4) SIRS (systemic inflammatory response syndrome): Plan: Secondary to influenza as above (5) Elevated serum creatinine: Plan: Creatinine elevated at 1.63 on admission, unclear what his baseline is Hydrate with IV fluids Follow BMP in the morning May need to place Up catheter if is retaining with bladder scans Hold home Lasix and losartan (6) Alzheimer disease: Plan: Advanced as per neurology notes Continue Namenda and Aricept Typically can converse in sentences as per 's report with ER physician He does reside in a dementia unit at a personal correction (7) Neurogenic claudication due to lumbar spinal stenosis: Plan: No acute issues (8) GERD (gastroesophageal reflux disease): Plan: Continue home PPI (9) HTN (hypertension): Plan: Blood pressures here are controlled Holding home losartan for possible acute kidney injury Continue home metoprolol (10) High cholesterol: Plan: Continue simvastatin Plan: DVT prophylaxis-SCDs, Lovenox SQ Disposition-admit to medical/surgical floor DNR/DNI as per 's discussion with the ER physician I attempted to call the on two different numbers in the chart and did not reach her. We will try to call her later to let her know that he did indeed test positive for influenza A. History of Present Illness Chief Complaint: Fever, lethargy Primary Care Provider: Henrry Brito This patient is an 85-year-old male with a history of advanced Alzheimer's dementia with insomnia and lumbar spinal stenosis, HTN, hyperlipidemia, GERD, and glaucoma, who presents to the ER from a dementia unit at [facility] for altered mental status. He also had a fall yesterday and then staff at the personal care facility noticed he had a low-grade fever and was not acting like his usual self. His reported to the ER physician that he is less conversant-typically he can speak in full sentences but was only giving one-word answers and appeared more confused than usual. In the ER, he had a work-up for his fall to include a CT of the head, cervical spine, lumbar spine, and abdomen/pelvis, as well as pelvis x-rays and a chest x-ray. All of these imaging studies were negative for anything acute. His laboratory work-up showed a mild thrombocytopenia at 120, but no leukocytosis. His creatinine was elevated at 1.63 and BUN elevated at 27 with no baseline to compare to. A lactate was normal, troponin was negative, LFTs were normal, procalcitonin was negative at 0.21. A urinalysis showed 3+ protein and 1+ ketones but was negative for infection otherwise. A Covid-19 test was negative. A flu test was added on at the time of admission and later came back positive for influenza A. He had a temperature of 37.9, had mild tachycardia with a heart rate of 100 and mild tachypnea with a respiratory rate of 28 with a normal pulse ox of 96% on room air. In the ER, blood cultures were drawn but no antibiotics were given as there was an unclear source of infection initially, but now found to have influenza A He was given 1 L of normal saline. He will be admitted for SIRS criteria and acute encephalopathy secondary to influenza A and dehydration. Allergies Allergy/AdvReac Type Severity Reaction Status Date / Time No Known Allergies Allergy Verified 06/13/21 10:39 Home Medications Medication Instructions Recorded Confirmed Type cholecalciferol (vitamin D3) 50 2,000 unit PO DAILY cap 02/28/19 06/13/21 History mcg (2,000 unit) capsule losartan 50 mg tablet 50 mg PO DAILY tab 07/23/19 06/13/21 History bimatoprost 0.01 % eye drops 1 drops OP HS 01/10/20 06/13/21 History (Lumigan) pantoprazole 40 mg tablet,delayed 40 mg PO DAILY 04/14/20 06/13/21 History release furosemide 40 mg tablet (Lasix) 40 mg PO DAILY PRN 01/06/21 06/13/21 History memantine 28 mg capsule 28 mg PO DAILY #90 ea 04/16/21 06/13/21 Rx sprinkle,extended release 24hr (Namenda XR) metoprolol tartrate 25 mg tablet 25 mg PO BID #60 tab 04/28/21 06/13/21 History simvastatin 40 mg tablet 40 mg PO DAILY 04/28/21 06/13/21 History donepezil 10 mg tablet 10 mg PO HS 90 Days #90 tab 05/27/21 06/13/21 Rx albuterol sulfate 2.5 mg INHALATION Q4H PRN 06/13/21 06/13/21 History albuterol sulfate 90 mcg/actuation 2 puff INHALATION Q4H PRN 06/13/21 06/13/21 History aerosol inhaler ascorbic acid (vitamin C) 500 mg 500 mg PO DAILY 06/13/21 06/13/21 History tablet (Vitamin C) benzonatate 200 mg capsule 200 mg PO TID PRN 06/13/21 06/13/21 History mirtazapine 15 mg tablet 22.5 mg PO HS 06/13/21 06/13/21 History timolol 0.5 % eye drops 1 drp OPHTHALMIC (EYE) DAILY 06/13/21 06/13/21 History vit C 250 mg-vit E 90 mg-zinc 40 1 tab PO BID 06/13/21 06/13/21 History mg-copper 1 nv-afydmy-nnypot capsule (PreserVision AREDS-2) Past Med/Surg History Medical History (Updated 06/13/21 @ 16:33 by Debbie Alaniz MD) GERD (gastroesophageal reflux disease) High cholesterol HTN (hypertension) Neurogenic claudication due to lumbar spinal stenosis Spinal stenosis of lumbar region Surgical History Surgical history unknown Family History Father Memory loss Social History Smoking Status: Never smoker Hx Alcohol Use: No Hx Substance Use: No Preferred Language: Tajik Communication Ability: Effective Visual Impairment: Limited Hearing Ability: Hard of Hearing Beliefs That Will Affect Care: None marital status: Current Living Situation: Spouse current occupational status: retired Feels Safe at Home: Yes Review of Systems Review of Systems: Unobtainable due to cognitive status Physical Exam Constitutional: WD/WN, vitals as above + ill appearing Appears lethargic but does open eyes and say hello, will not answer any questions Eyes: + eyelid abnormality (Right upper lid with cyst), + conjunctival abnormality (Mild erythema of conjunctiva), PERRL and EOM intact bilaterally ENMT: Nose: no external nose abnormality Mouth: + dry oral mucous membranes Neck: trachea midline, no thyromegaly Respiratory: normal respiratory effort, lungs clear to auscultation Cardiovascular: RRR, no murmur, no edema Chest (Breasts): Chest: normal inspection of chest Gastrointestinal (Abdomen): normal bowel sounds, soft, nontender, no hepatosplenomegaly Musculoskeletal: Extremities: extremities normal to inspection; no cyanosis and no clubbing Skin: no rashes, warm and dry Trauma: + abrasion (Top of scalp with shoulder abrasion with dried blood on bandage) Neurologic: moves all extremities (Spontaneously, but not on command) and awake Lymphatic: no lymphedema Results & Data Results & Data ([facility]) Vital Signs (Past 12 Hours) Vital Signs Temp Pulse Pulse Resp BP BP Pulse Ox 06/13/21 15:30 100 H 28 H 116/71 96 06/13/21 15:15 96 H 24 96 06/13/21 15:00 103 H 18 103/69 96 06/13/21 14:30 106 H 18 108/73 95 06/13/21 14:15 96 H 29 H 91 06/13/21 14:00 92 H 26 H 91 06/13/21 13:45 100 H 27 H 91 06/13/21 13:30 99 H 25 H 99/56 L 95 06/13/21 13:15 110 H 17 98 06/13/21 13:00 92 H 26 H 96 06/13/21 12:45 96 H 28 H 95 06/13/21 12:30 99 H 29 H 115/55 L 94 06/13/21 12:15 103 H 23 96 06/13/21 12:00 102 H 27 H 95/65 L 94 06/13/21 11:45 99 H 26 H 93 06/13/21 11:30 111 H 26 H 116/64 94 06/13/21 11:15 100 H 30 H 94 06/13/21 11:00 102 H 28 H 117/62 94 06/13/21 10:56 102 H 26 H 117/52 L 95 06/13/21 10:46 104 H 27 H 97 06/13/21 10:30 102 H 29 H 95 06/13/21 10:24 105 H 95 06/13/21 10:15 103 H 28 H 95 06/13/21 10:00 107 H 06/13/21 09:45 115 H 22 97 06/13/21 09:30 112 H 30 H 96 06/13/21 09:19 112 H 28 H 95 06/13/21 09:18 37.9 C H 116 H 30 H 119/82 89 L Laboratory Results 06/13/21 06/13/21 06/13/21 Range/Units 15:37 10:57 09:38 WBC (4.8-10.8) K/uL RBC (4.7-6.1) M/uL Hgb (14.0-18.0) g/dL Hct (42-52) % MCV (80-100) fL MCH (25-34) pg MCHC (32-36) g/dL RDW Std Deviation (36.4-46.3) fL RDW Coeff of Juan Carlos (11.5-14.5) % Plt Count (130-400) K/uL MPV (7.4-10.4) fL Immature Gran % (Auto) % Neut % (Auto) % Lymph % (Auto) % [place] % (Auto) % Eos % (Auto) % Baso % (Auto) % Neut # (Auto) (1.4-6.5) K/uL Lymph # (Auto) (1.2-3.4) K/uL [place] # (Auto) (0.11-0.59) K/uL Eos # (Auto) (0-0.5) K/uL Baso # (Auto) (0-0.2) K/uL Immature Gran # (Auto) (0.00-0.02) K/uL PT (9.0-12.0) Seconds INR (0.9-1.1) APTT (21.0-31.0) Seconds PTT Ratio Sodium (136-145) mmol/L Potassium (3.5-5.1) mmol/L Chloride (98-107) mmol/L Carbon Dioxide (21-32) mmol/L Anion Gap (3-11) BUN (7-18) mg/dl Creatinine (0.6-1.4) mg/dl Est Cr Clr Drug Dosing Est GFR ( Amer) ml/min Est GFR (Non-Af Amer) ml/min BUN/Creatinine Ratio (10-20) Glucose (70-99) mg/dl Lactate (0.4-2.0) mmol/L Calcium (8.5-10.1) mg/dl Magnesium (1.8-2.4) mg/dl Total Bilirubin (0.2-1) mg/dl AST (15-37) U/L ALT (12-78) U/L Alkaline Phosphatase (45-117) U/L Troponin I (0-0.045) ng/ml Total Protein (6.4-8.2) gm/dl Albumin (3.4-5.0) gm/dl Globulin (2.5-4.0) gm/dl Albumin/Globulin Ratio (0.9-2) Procalcitonin (0-0.5) ng/ml Urine Color Dark Yellow Urine Appearance Cloudy A (Clear) Urine pH 5.0 (4.5-7.5) Ur Specific [place] 1.020 (1.000-1.030) Urine Protein 3+ H (Negative) Urine Glucose (UA) Negative (Negative) Urine Ketones 1+ H (Negative) Urine Blood Trace H (Negative) Urine Nitrite Negative (Negative) Urine Bilirubin Negative (Negative) Urine Urobilinogen Negative (Negative) Ur Leukocyte Esterase Negative (Negative) Urine WBC (Auto) 1-5 (0-5) /hpf Urine RBC (Auto) 0-4 (0-4) /hpf U Hyaline Cast (Auto) 1-5 (0-5) /lpf U Epithel Cells (Auto) 5-10 H (0-5) /lpf Urine Bacteria (Auto) Negative (Negative) SARS-CoV-2 (PCR) NEGATIVE (Negative) Influ A Molecular Assay Positive A* (Negative) Influ B Molecular Assay Negative (Negative) 06/13/21 06/13/21 06/13/21 Range/Units 09:38 09:38 09:38 WBC (4.8-10.8) K/uL RBC (4.7-6.1) M/uL Hgb (14.0-18.0) g/dL Hct (42-52) % MCV (80-100) fL MCH (25-34) pg MCHC (32-36) g/dL RDW Std Deviation (36.4-46.3) fL RDW Coeff of Juan Carlos (11.5-14.5) % Plt Count (130-400) K/uL MPV (7.4-10.4) fL Immature Gran % (Auto) % Neut % (Auto) % Lymph % (Auto) % [place] % (Auto) % Eos % (Auto) % Baso % (Auto) % Neut # (Auto) (1.4-6.5) K/uL Lymph # (Auto) (1.2-3.4) K/uL [place] # (Auto) (0.11-0.59) K/uL Eos # (Auto) (0-0.5) K/uL Baso # (Auto) (0-0.2) K/uL Immature Gran # (Auto) (0.00-0.02) K/uL PT (9.0-12.0) Seconds INR (0.9-1.1) APTT (21.0-31.0) Seconds PTT Ratio Sodium 138 (136-145) mmol/L Potassium 4.2 (3.5-5.1) mmol/L Chloride 103 (98-107) mmol/L Carbon Dioxide 25 (21-32) mmol/L Anion Gap 10.0 (3-11) BUN 27 H (7-18) mg/dl Creatinine 1.63 H (0.6-1.4) mg/dl Est Cr Clr Drug Dosing Not Reportable Est GFR ( Amer) 43.9 ml/min Est GFR (Non-Af Amer) 37.8 ml/min BUN/Creatinine Ratio 16.6 (10-20) Glucose 119 H (70-99) mg/dl Lactate 1.8 (0.4-2.0) mmol/L Calcium 8.9 (8.5-10.1) mg/dl Magnesium 1.9 (1.8-2.4) mg/dl Total Bilirubin 0.8 (0.2-1) mg/dl AST 27 (15-37) U/L ALT 26 (12-78) U/L Alkaline Phosphatase 83 (45-117) U/L Troponin I < 0.015 (0-0.045) ng/ml Total Protein 7.0 (6.4-8.2) gm/dl Albumin 3.2 L (3.4-5.0) gm/dl Globulin 3.8 (2.5-4.0) gm/dl Albumin/Globulin Ratio 0.8 L (0.9-2) Procalcitonin 0.21 (0-0.5) ng/ml Urine Color Urine Appearance (Clear) Urine pH (4.5-7.5) Ur Specific [place] (1.000-1.030) Urine Protein (Negative) Urine Glucose (UA) (Negative) Urine Ketones (Negative) Urine Blood (Negative) Urine Nitrite (Negative) Urine Bilirubin (Negative) Urine Urobilinogen (Negative) Ur Leukocyte Esterase (Negative) Urine WBC (Auto) (0-5) /hpf Urine RBC (Auto) (0-4) /hpf U Hyaline Cast (Auto) (0-5) /lpf U Epithel Cells (Auto) (0-5) /lpf Urine Bacteria (Auto) (Negative) SARS-CoV-2 (PCR) (Negative) Influ A Molecular Assay (Negative) Influ B Molecular Assay (Negative) 06/13/21 06/13/21 Range/Units 09:38 09:38 WBC 10.03 (4.8-10.8) K/uL RBC 4.49 L (4.7-6.1) M/uL Hgb 14.2 (14.0-18.0) g/dL Hct 42.1 (42-52) % MCV 93.8 (80-100) fL MCH 31.6 (25-34) pg MCHC 33.7 (32-36) g/dL RDW Std Deviation 47.4 H (36.4-46.3) fL RDW Coeff of Juan Carlos 13.7 (11.5-14.5) % Plt Count 120 L (130-400) K/uL MPV 10.0 (7.4-10.4) fL Immature Gran % (Auto) 0.2 % Neut % (Auto) 86.8 % Lymph % (Auto) 5.2 % [place] % (Auto) 7.8 % Eos % (Auto) 0.0 % Baso % (Auto) 0.0 % Neut # (Auto) 8.71 H (1.4-6.5) K/uL Lymph # (Auto) 0.52 L (1.2-3.4) K/uL [place] # (Auto) 0.78 H (0.11-0.59) K/uL Eos # (Auto) 0.00 (0-0.5) K/uL Baso # (Auto) 0.00 (0-0.2) K/uL Immature Gran # (Auto) 0.02 (0.00-0.02) K/uL PT 10.9 (9.0-12.0) Seconds INR 1.1 (0.9-1.1) APTT 33.7 H (21.0-31.0) Seconds PTT Ratio 1.3 Sodium (136-145) mmol/L Potassium (3.5-5.1) mmol/L Chloride (98-107) mmol/L Carbon Dioxide (21-32) mmol/L Anion Gap (3-11) BUN (7-18) mg/dl Creatinine (0.6-1.4) mg/dl Est Cr Clr Drug Dosing Est GFR ( Amer) ml/min Est GFR (Non-Af Amer) ml/min BUN/Creatinine Ratio (10-20) Glucose (70-99) mg/dl Lactate (0.4-2.0) mmol/L Calcium (8.5-10.1) mg/dl Magnesium (1.8-2.4) mg/dl Total Bilirubin (0.2-1) mg/dl AST (15-37) U/L ALT (12-78) U/L Alkaline Phosphatase (45-117) U/L Troponin I (0-0.045) ng/ml Total Protein (6.4-8.2) gm/dl Albumin (3.4-5.0) gm/dl Globulin (2.5-4.0) gm/dl Albumin/Globulin Ratio (0.9-2) Procalcitonin (0-0.5) ng/ml Urine Color Urine Appearance (Clear) Urine pH (4.5-7.5) Ur Specific [place] (1.000-1.030) Urine Protein (Negative) Urine Glucose (UA) (Negative) Urine Ketones (Negative) Urine Blood (Negative) Urine Nitrite (Negative) Urine Bilirubin (Negative) Urine Urobilinogen (Negative) Ur Leukocyte Esterase (Negative) Urine WBC (Auto) (0-5) /hpf Urine RBC (Auto) (0-4) /hpf U Hyaline Cast (Auto) (0-5) /lpf U Epithel Cells (Auto) (0-5) /lpf Urine Bacteria (Auto) (Negative) SARS-CoV-2 (PCR) (Negative) Influ A Molecular Assay (Negative) Influ B Molecular Assay (Negative) Diagnostic Findings Cervical Spine CT 06/13/21 09:21 CT cervical spine wo con CLINICAL HISTORY: Status post fall yesterday with abrasion to the head. Neck pain. Difficulty ambulating. COMPARISON STUDY: No previous studies for comparison. CT DOSE: 977.79 mGy.cm TECHNIQUE: Standard CT of the Cervical Spine was performed without IV contrast. A dose lowering technique was utilized adhering to the principles of ALARA. FINDINGS: Bones: Bones are osteopenic. There is no evidence for an acute fracture or malalignment. The heights of the vertebral bodies are maintained. The vertebral bodies are in anatomic alignment. The odontoid is intact. Degenerative changes are seen at the atlantoaxial articulation. Disc spaces:Moderate to marked disc space narrowing is present from C3 through C7 with endplate sclerosis and osteophyte formation. Apophyseal joints:Degenerative apophyseal joint disease is also seen throughout the cervical spine. Soft tissues:The prevertebral soft tissues are within normal limits. IMPRESSION: No acute abnormality. Degenerative disc and degenerative joint disease. ACT 112: Negative or not required by law. Electronically signed by: Lawrence Franklin M.D. 06/13/2021 10:20 AM Chest X-Ray 06/13/21 09:21 XR chest 1V portable CLINICAL HISTORY: SEPSIS. Evaluate cardiopulmonary status COMPARISON STUDY: No previous studies for comparison. TECHNIQUE: 1 view of the chest FINDINGS: Single frontal view of the chest demonstrates the cardiomediastinal silhouette to be within normal limits. There is a decreased inspiratory effort with elevation of the hemidiaphragms and crowding of the bronchovascular markings at the lung bases and centrally. The lungs are clear of alveolar opacities. There is no evidence for pleural effusion. There is no evidence for vascular congestion. There is no acute osseous pathology. IMPRESSION: There is a decreased inspiratory effort with otherwise no acute chest disease. ACT 112: Negative or not required by law. Electronically signed by: Lawrence Franklin M.D. 06/13/2021 9:[address] 06/13/21 09:21 CT head/brain wo con CLINICAL HISTORY: Status post fall yesterday with abrasion to the top of the hea d. Difficulty ambulating. Pain. COMPARISON STUDY: No previous studies for comparison. TECHNIQUE: Standard CT of the Brain was performed without IV contrast. A dose lowering technique was utilized adhering to the principles of ALARA. FINDINGS: Extraaxial space: There is no evidence for subdural hematoma. There are no extra-axial fluid collections. Ventricles and cisterns: The ventricles are mildly to moderately dilated bilaterally. There is no evidence for midline shift or mass effect. Parenchyma: There is no subarachnoid or intraparenchymal hemorrhage. There is no evidence for an acute infarct or cerebral edema. There is mild cerebral cortical atrophy and decreased attenuation in the periventricular white matter representing remote small vessel disease. There are no gross mass lesions. Osseous structures: There is no evidence for an acute fracture. The visualized paranasal sinuses are clear. The mastoid air cells are clear bilaterally. Soft tissues: There is no evidence for focal soft tissue swelling. IMPRESSION: No acute intracerebral pathology. 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 ACT 112: Negative or not required by law. Electronically signed by: Lawrence Franklin M.D. 06/13/2021 10:18 AM Pelvis X-Ray 06/13/21 09:21 XR pelvis 1-2V routine CLINICAL HISTORY: Status post fall with pain. COMPARISON STUDY: No previous studies for comparison. TECHNIQUE: [A single AP radiograph was obtained. FINDINGS: There is no evidence for an acute fracture. There is mild narrowing hip joint spaces bilaterally. The bones are in anatomic alignment. The SI joints are intact bilaterally. The remaining visualized bones of the pelvis are intact. No focal soft tissue abnormalities identified. IMPRESSION: No acute abnormality. Mild hip joint space narrowing. ACT 112: Negative or not required by law. Electronically signed by: Lawrence Franklin M.D. 06/13/2021 9:[address] 06/13/21 13:58 CT lumbar spine wo con CLINICAL HISTORY: Status post fall with back pain COMPARISON STUDY: No previous studies for comparison. TECHNIQUE: Standard CT of the Lumbar Spine was performed without IV contrast. A dose lowering technique was utilized adhering to the principles of ALARA. FINDINGS: Bones: Bones are osteopenic. There is evidence for an old compression fracture of the L2 vertebral body. There is no evidence for an acute fracture or malalignment. The heights of the remaining lumbar vertebral bodies are maintained. The vertebral bodies are in anatomic alignment. Disc spaces: There is marked disc space narrowing at T12-L1, L4-L5 and L5-is 1 with vacuum disc phenomena present. No gross disc protrusion/herniation can be identified. Facet joints: Hypertrophic facet joint disease seen particularly at the lower 2 disc space levels. The sacroiliac joints are intact bilaterally. Soft tissues: The prevertebral soft tissues are within normal limits. IMPRESSION: 1. Osteopenia with old compression fracture of L2. No acute compression fracture. 2. 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 ACT 112: Negative or not required by law. Electronically signed by: Lawrence Franklin M.D. 06/13/2021 3:21 PM Abdomen/Pelvis CT 06/13/21 13:59 CT abd pelvis wo con CLINICAL HISTORY: Status post fall with back pain COMPARISON STUDY: No previous studies for comparison. CT DOSE: 371.60 mGy.cm TECHNIQUE: Standard CT of the Abdomen and Pelvis was performed without IV contrast. The patient did not receive oral contrast. A dose lowering technique was utilized adhering to the principles of ALARA. FINDINGS: Lung base: There is dependent edema in both lung bases along with mild bibasilar atelectasis. The heart is mildly enlarged with coronary artery calcification. Abdominal cavity: There is no evidence for abdominal mass, adenopathy or ascites. Liver: The liver is homogeneous in attenuation on these limited noncontrast images.. Spleen: The spleen is homogeneous in attenuation on these limited noncontrast images. Pancreas: The pancreas is homogeneous in attenuation on these limited noncontrast images. Gall Bladder: The gallbladder is well distended with no evidence for cholelithiasis, wall thickening or pericholecystic edema.. Adrenal glands: The adrenal glands are normal in size and attenuation on these limited noncontrast images. Kidneys: The kidneys are homogeneous in attenuation on these limited noncontrast images. There is no evidence for gross renal mass, calculus or hydronephrosis bilaterally. Bowel: There is a small hiatal hernia. The bowel loops are normally placed within the abdomen and pelvis without evidence for dilatation or obstruction. There is no evidence for mass lesion. There are no inflammatory changes present. There is no evidence for free air. There is a normal appendix in the right lower quadrant. Bladder: There is no evidence for focal bladder wall thickening, calculus or diverticulum. : There is no evidence for pelvic mass or adenopathy. Prostate is mildly enlarged. Vasculature: There is no evidence for focal aneurysmal dilatation of the abdominal aorta. Mild atherosclerotic calcification is present. Osseous structures: Degenerative changes are seen within the lumbar spine. Please see separate CT lumbar spine report for further evaluation. IMPRESSION: 1. No acute intra-abdominal or pelvic abnormality on these limited noncontrast images. 2. Nonacute findings as delineated above. 3. Please see CT of the lumbar spine report for further evaluation. ACT 112: Negative or not required by law. Electronically signed by: Lawrence Franklin M.D. 06/13/2021 3:17 PM ECG Additional Comments: ECG on 06/13/2021 at 9:18 AM shows sinus tachycardia with PVCs, rate 112, left axis deviation, RBBB, no previous ECGs to compare to Code Status & VTE Plan Code Status DNR/DNI as per ER physicians discussion with the VTE Prophylaxis Plan VTE Prophylaxis will be ordered: Yes PG Care Time/CCT Total # of Minutes Spent Total Time Spent with Patient: Total time spent is greater than 50% in coordination of care (as documented) at patient's floor/unit and/or counseling patient: Coding Level of Care Code 15076 Initial Inpt Care Lvl 3 Diagnoses Alzheimer disease G30.9; F02.80 Neurogenic claudication due to lumbar spinal stenosis M48.062 GERD (gastroesophageal reflux disease) K21.9 HTN (hypertension) I10 High cholesterol E78.00 Acute encephalopathy G93.40 Fever R50.9 SIRS (systemic inflammatory response syndrome) R65.10 Elevated serum creatinine R79.89 Influenza A J10.1
[2021-06-13] MEDS ORDERED: ACETAMINOPHEN 1,000 MG/100 ML VIAL IV STA (16:06)
[2021-06-13] MEDS ORDERED: ALBUTEROL 0.083% NEBU SOLN 3 ML VIAL INH PRN (22:25)
[2021-06-13] MEDS ORDERED: ACETAMINOPHEN 325 MG TAB PO PRN (22:25)
[2021-06-13] MEDS: LACTATED RINGER'S 1,000 ML IV SCH (23:21)
[2021-06-13] MEDS: BIMATOPROST 0.01% OP SOLN 2.5 ML BTL OP SCH (23:30)
[2021-06-13] MEDS: MIRTAZAPINE TAB 15 MG TAB PO SCH ×2 (23:32→23:45)
[2021-06-13] MEDS: DONEPEZIL HCL 10 MG TAB PO SCH ×2 (23:32→23:45)
[2021-06-13] MEDS: METOPROLOL TARTRATE 25 MG TAB PO SCH (23:32)
[2021-06-13] MEDS: OSELTAMIVIR PHOSPHATE SUSP 30 MG/5 ML UDP PO SCH (23:45)
[2021-06-14 06:22] LABS: Basophils # (auto) 0.01 K/uL (0-0.2); Basophils % (auto) 0.1 %; Eosinophils # (auto) 0.01 K/uL (0-0.5); Eosinophils % (auto) 0.1 %; Hematocrit (blood only) 38.8 % (42-52); Hemoglobin 12.9 g/dL (14.0-18.0); Immature Granulocytes # (auto) 0.03 K/uL (0.00-0.02); Immature Granulocytes % (auto) 0.3 %; Lymphocytes # (auto) 0.65 K/uL (1.2-3.4); Lymphocytes % (auto) 6.9 %; Mean Corpuscular Hemoglobin 31.5 pg (25-34); Mean Corpuscular Hgb Conc 33.2 g/dL (32-36); Mean Corpuscular Volume 94.9 fL (80-100); Mean Platelet Volume 10.3 fL (7.4-10.4); Monocytes # (auto) 0.46 K/uL (0.11-0.59); Monocytes % (auto) 4.9 %; Neutrophils # (auto) 8.25 K/uL (1.4-6.5); Neutrophils % (auto) 87.7 %; Platelet Count 103 K/uL (130-400); RDW Coefficient of Variation 13.9 % (11.5-14.5); RDW Standard Deviation 48.3 fL (36.4-46.3); Red Blood Count 4.09 M/uL (4.7-6.1); White Blood Count 9.41 K/uL (4.8-10.8)
[2021-06-14 06:52] LABS: Albumin Level 2.5 gm/dl (3.4-5.0); BUN Creatinine Ratio 21.7 (10-20); Calcium 8.5 mg/dl (8.5-10.1); Creatinine Clr Calc Pharmacy 40.8 ml/min; Est GFR (African American) 59.3 ml/min; Est GFR (Non-African American) 51.2 ml/min; Potassium 4.3 mmol/L (3.5-5.1)
[2021-06-14 06:55] LABS: Albumin Globulin Ratio 0.7 (0.9-2); Bilirubin,Total 0.7 mg/dl (0.2-1); Globulin 3.5 gm/dl (2.5-4.0)
[2021-06-14] MEDS: OSELTAMIVIR PHOSPHATE SUSP 30 MG/5 ML UDP PO SCH ×2 (07:59→22:15)
[2021-06-14] MEDS: METOPROLOL TARTRATE 25 MG TAB PO SCH ×2 (07:59→20:55)
[2021-06-14] MEDS: PANTOprazole 40 MG TAB PO SCH (07:59)
[2021-06-14] MEDS: SIMVASTATIN 40 MG TAB PO SCH (07:59)
[2021-06-14] MEDS: ASCORBIC ACID 500 MG TAB PO SCH (07:59)
[2021-06-14] MEDS: CHOLECALCIFEROL 1,000 UNITS 25 MCG TAB PO SCH (07:59)
[2021-06-14] MEDS: BIMATOPROST 0.01% OP SOLN 2.5 ML BTL OP SCH (09:35)
[2021-06-14] MEDS: TIMOLOL MALEATE 0.5% OP SOLN 5 ML BTL OP SCH (09:36)
[2021-06-14] MEDS: ENOXAPARIN INJ 40 MG/0.4 ML SYR SQ SCH (09:36)
[2021-06-14] MEDS: LACTATED RINGER'S 1,000 ML IV SCH (12:48)
--- NOTE | 2021-06-14 15:17 | Hospitalist Progress Note ---
Date of Service June 14, 2021 Assessment & Plan (1) Influenza A: Plan: Presents with fever, lethargy, acute encephalopathy Lives in a dementia unit at a personal care facility -Admit to medical/surgical floor on isolation precautions for influenza -Supportive care with supplemental O2 as needed keep pulse ox greater than 92%, acetaminophen as needed for fevers, IV fluids for hydration (can now stop) -Start Tamiflu to be renally dosed at 30 mg p.o. twice daily -Advance diet as tolerated stable on low flow nasal canula, no distress anticipate he will recover, may take a few days (2) Acute encephalopathy: Plan: As above, secondary to influenza A, febrile illness, and likely some dehydration given elevated creatinine and BUN all in the setting of advanced dementia Hydrating with IV fluids, stop fluids today, eating/drinking better Treating with supportive care and Tamiflu for influenza as above he is calm and pleasant, cooperative but not a good historian (3) Fever: Plan: Secondary to influenza A as above Covid-19 test is negative Urinalysis and chest x-ray negative CT of the abdomen/pelvis negative for infection CT head negative for intracranial hemorrhage No evidence of DVT on examination -No antibiotics needed at this point (4) SIRS (systemic inflammatory response syndrome): Plan: Secondary to influenza as above resolved (5) Elevated serum creatinine: Plan: Creatinine elevated at 1.63 on admission, unclear what his baseline is Hydrate with IV fluids, Cr improved to 1.27 this would likely represent mild HOLDEN, resolved Hold home Lasix and losartan for now, resume in 1-2 days (6) Alzheimer disease: Plan: Advanced as per neurology notes Continue Namenda and Aricept Typically can converse in sentences as per 's report with ER physician He does reside in a dementia unit at a personal [facility] (7) Neurogenic claudication due to lumbar spinal stenosis: Plan: No acute issues (8) GERD (gastroesophageal reflux disease): Plan: Continue home PPI (9) HTN (hypertension): Plan: Blood pressures here are controlled Holding home losartan for possible acute kidney injury Continue home metoprolol (10) High cholesterol: Plan: Continue simvastatin Plan: DVT prophylaxis-SCDs, Lovenox SQ Disposition-admit to medical/surgical floor DNR/DNI as per 's discussion with the ER physician Admission and Anticipated Discharge Date Admission Date: June 13, 2021 Subjective patient is pleasantly confused, not a good historian he is breathing comfortably on low flow oxygen appears to be eating okay, maybe 40% of food consumed at lunch reviewed chart and labs Review of Systems Review of Systems: Unobtainable due to cognitive status Physical Exam Physical Exam: General: well developed, well nourished, elderly male, no acute distress, comfortable Neck: supple, trachea midline, normal thyroid Lungs: clear to auscultation bilaterally, normal respiratory effort, no accessory muscle use, no distress Heart: regular S1 and S2, no murmur, peripheral pulses normal, capillary refill normal, no edema Abdomen: soft, NT, ND, + BS, no hepatomegaly, normal to percussion Extremities: normal in appearance, no cyanosis, no petechiae, strength is 5/5 bilaterally Neuro: awake, cooperative, moves all extremities, no focal motor deficits, CN II-XII intact Skin: warm, dry, no rash, normal turgor Psych: Awake, oriented to person only, poor memory (dementia) Results & Data Results & Data ([facility]) Vital Signs (Past 12 Hours) Vital Signs Temp Pulse Resp BP Pulse Ox 06/14/21 15:05 36.9 C 77 18 131/70 97 06/14/21 07:47 36.7 C 79 16 109/61 92 Laboratory Results Laboratory Results - last 24 hr 06/13/21 06/13/21 06/14/21 15:37 23:38 05:35 WBC 9.41 RBC 4.09 L Hgb 12.9 L Hct 38.8 L MCV 94.9 MCH 31.5 MCHC 33.2 RDW Std Deviation 48.3 H RDW Coeff of Juan Carlos 13.9 Plt Count 103 L MPV 10.3 Immature Gran % (Auto) 0.3 Neut % (Auto) 87.7 Lymph % (Auto) 6.9 Will[place] % (Auto) 4.9 Eos % (Auto) 0.1 Baso % (Auto) 0.1 Neut # (Auto) 8.25 H Lymph # (Auto) 0.65 L Will[place] # (Auto) 0.46 Eos # (Auto) 0.01 Baso # (Auto) 0.01 Immature Gran # (Auto) 0.03 H Sodium Potassium Chloride Carbon Dioxide Anion Gap BUN Creatinine Est Cr Clr Drug Dosing Est GFR ( Amer) Est GFR (Non-Af Amer) BUN/Creatinine Ratio Glucose Calcium Total Bilirubin AST ALT Alkaline Phosphatase Total Protein Albumin Globulin Albumin/Globulin Ratio Nasal Screen MRSA (PCR) Negative Influ A Molecular Assay Positive A* Influ B Molecular Assay Negative 06/14/21 05:35 WBC RBC Hgb Hct MCV MCH MCHC RDW Std Deviation RDW Coeff of Juan Carlos Plt Count MPV Immature Gran % (Auto) Neut % (Auto) Lymph % (Auto) Willacy % (Auto) Eos % (Auto) Baso % (Auto) Neut # (Auto) Lymph # (Auto) Willacy # (Auto) Eos # (Auto) Baso # (Auto) Immature Gran # (Auto) Sodium 143 Potassium 4.3 Chloride 108 H Carbon Dioxide 26 Anion Gap 9.0 BUN 28 H Creatinine 1.27 D Est Cr Clr Drug Dosing 40.8 Est GFR ( Amer) 59.3 Est GFR (Non-Af Amer) 51.2 BUN/Creatinine Ratio 21.7 H Glucose 92 Calcium 8.5 Total Bilirubin 0.7 AST 27 ALT 25 Alkaline Phosphatase 74 Total Protein 6.0 L Albumin 2.5 L Globulin 3.5 Albumin/Globulin Ratio 0.7 L Nasal Screen MRSA (PCR) Influ A Molecular Assay Influ B Molecular Assay Medications Administered Current Inpatient Medications Acetaminophen (Acetaminophen 325 Mg Tab) 650 mg PO Q4H PRN PRN Reason: pain/fever Stop: 07/13/21 22:24 Albuterol (Albuterol 0.083% Nebu Soln 3 Ml Vial) 2.5 mg INH Q4H PRN PRN Reason: Shortness Of Breath Or Wheezing Stop: 07/13/21 22:24 Ascorbic Acid (Ascorbic Acid 500 Mg Tab) 500 mg PO DAILY RON Stop: 07/14/21 08:59 Last Admin: 06/14/21 07:59 Dose: Not Given Documented by: Bimatoprost (Bimatoprost 0.01% Op Soln 2.5 Ml Btl) 1 drops OP HS RON Stop: 07/13/21 22:24 Last Admin: 06/14/21 09:35 Dose: 1 drops Documented by: Donepezil HCl (Donepezil Hcl 10 Mg Tab) 10 mg PO HS RON Stop: 07/13/21 22:24 Last Admin: 06/13/21 23:45 Dose: Not Given Documented by: Enoxaparin Sodium (Enoxaparin Inj 40 Mg/0.4 Ml Syr) 40 mg SQ Q24H RON Stop: 07/14/21 08:59 Last Admin: 06/14/21 09:36 Dose: 40 mg Documented by: Lactated Ringer's (Lr) 1,000 mls @ 80 mls/hr IV .[id number] RON Stop: 06/14/21 23:24 Last Admin: 06/14/21 12:48 Dose: 80 mls/hr Documented by: Metoprolol Tartrate (Metoprolol Tartrate 25 Mg Tab) 25 mg PO BID RON Stop: 07/13/21 22:24 Last Admin: 06/14/21 07:59 Dose: Not Given Documented by: Mirtazapine (Mirtazapine Tab 15 Mg Tab) 22.5 mg PO HS RON Stop: 07/13/21 22:24 Last Admin: 06/13/21 23:45 Dose: Not Given Documented by: Miscellaneous (Memantine [Namenda Xr]: Order Awaiting Action) 1 ea N/A QS RON Stop: 07/14/21 07:59 Last Admin: 06/14/21 07:59 Dose: Not Given Documented by: Oseltamivir Phosphate (Oseltamivir Phosphate Susp 30 Mg/5 Ml Udp) 30 mg PO BID [facility]; Protocol Stop: 06/18/21 22:24 Last Admin: 06/14/21 07:59 Dose: Not Given Documented by: Pantoprazole Sodium (Pantoprazole 40 Mg Tab) 40 mg PO DAILY RON Stop: 07/14/21 08:59 Last Admin: 06/14/21 07:59 Dose: Not Given Documented by: Simvastatin (Simvastatin 40 Mg Tab) 40 mg PO DAILY RON Stop: 07/14/21 08:59 Last Admin: 06/14/21 07:59 Dose: Not Given Documented by: Timolol Maleate (Timolol Maleate 0.5% Op Soln 5 Ml Btl) 1 drops OP DAILY RON Stop: 07/14/21 08:59 Last Admin: 06/14/21 09:36 Dose: 1 drops Documented by: Vitamin D (Cholecalciferol 1,000 Units 25 Mcg Tab) 2,000 units PO DAILY RON Stop: 07/14/21 08:59 Last Admin: 06/14/21 07:59 Dose: Not Given Documented by: PG Care Time/CCT Total # of Minutes Spent Total Time Spent with Patient: Total time spent is greater than 50% in coordination of care (as documented) at patient's floor/unit and/or counseling patient: Coding Level of Care Code 59923 Subseq Hosp Care Lvl 2 Diagnoses Influenza A J10.1 Acute encephalopathy G93.40 Fever R50.9 SIRS (systemic inflammatory response syndrome) R65.10 Elevated serum creatinine R79.89 Alzheimer disease G30.9; F02.80 Neurogenic claudication due to lumbar spinal stenosis M48.062 GERD (gastroesophageal reflux disease) K21.9 HTN (hypertension) I10 High cholesterol E78.00
[2021-06-14] MEDS: MIRTAZAPINE TAB 15 MG TAB PO SCH (20:54)
[2021-06-14] MEDS: DONEPEZIL HCL 10 MG TAB PO SCH (20:55)
[2021-06-14] MEDS ORDERED: Influenza Vaccine-High Dose (Fluzone-HD) PF 65+ 0.7 ML SYR IM ONE (21:15)
[2021-06-15] MEDS: NAMENDA 28 MG PO SCH (07:44)
[2021-06-15] MEDS: ASCORBIC ACID 500 MG TAB PO SCH (07:45)
[2021-06-15] MEDS: SIMVASTATIN 40 MG TAB PO SCH (07:45)
[2021-06-15] MEDS: PANTOprazole 40 MG TAB PO SCH (07:45)
[2021-06-15] MEDS: CHOLECALCIFEROL 1,000 UNITS 25 MCG TAB PO SCH (07:45)
[2021-06-15] MEDS: TIMOLOL MALEATE 0.5% OP SOLN 5 ML BTL OP SCH (07:46)
--- NOTE | 2021-06-15 08:06 | Hospitalist Progress Note ---
Date of Service June 15, 2021 Assessment & Plan (1) Influenza A: Plan: Presents with fever, lethargy, acute metabolic encephalopathy secondary to influenza A Sepsis due to Influenza A e/b +2/4 SIRS criteria and SOFA score of 4 treated and resolved Lives in a dementia unit at a personal care facility - isolation precautions for influenza -Start Tamiflu to be renally dosed at 30 mg p.o. twice daily -Advance diet as tolerated stable on low flow nasal canula, no distress (2) Fever: Plan: Secondary to influenza A as above Covid-19 test is negative Urinalysis and chest x-ray negative CT of the abdomen/pelvis negative for infection CT head negative for intracranial hemorrhage No evidence of DVT on examination -No antibiotics needed at this point (3) SIRS (systemic inflammatory response syndrome): Plan: Secondary to influenza as above resolved (4) Elevated serum creatinine: Plan: Creatinine elevated at 1.63 on admission, unclear what his baseline is Hydrate with IV fluids, Cr improved to 1.27 this would likely represent mild HOLDEN, resolved Hold home Lasix and losartan blood pressure is stable (5) Alzheimer disease: Plan: Advanced as per neurology notes Continue Namenda and Aricept Typically can converse in sentences as per 's report with ER physician He does reside in a dementia unit at a personal [facility] (6) Neurogenic claudication due to lumbar spinal stenosis: Plan: No acute issues (7) GERD (gastroesophageal reflux disease): Plan: Continue home PPI (8) HTN (hypertension): Plan: Blood pressures here are controlled Holding home losartan for possible acute kidney injury Continue home metoprolol (9) High cholesterol: Plan: Continue simvastatin Plan: DVT prophylaxis-SCDs, Lovenox SQ Disposition-admit to medical/surgical floor DNR/DNI as per 's discussion with the ER physician attempted to call in the evening of 06/15/21 without success left message Admission and Anticipated Discharge Date Admission Date: June 13, 2021 Review of Systems Review of Systems: Unobtainable due to cognitive status Physical Exam Physical Exam: The patient appeared well nourished but significantly demented Vital signs as documented. Head exam is healed wound on the top of his was very thin and change scan which looks to be possibly previous skin cancer manipulation. The wound is not open there is some scaling associated with it Neck is without JVD, thyromegaly, or carotid bruits. Lungs may be very scant rales which clear with deep inspiration no focal air loss no wheezes Cardiac exam, Rhythm is regular.. No murmurs, rubs or gallops. Abdominal exam reveals normal bowel sounds, soft non tender, no masses Extremities are nonedematous and both pedal pulses are present Neurologic exam is alert and oriented, x1, no focal loss of strength or sensation Skin is with changes to the crown of his head as mentioned Psychologically is with significant dementia and memory impairment Results & Data Results & Data ([facility]) Vital Signs (Past 12 Hours) Vital Signs Temp Pulse Resp BP Pulse Ox 06/15/21 07:17 97.9 F 82 16 109/63 95 06/14/21 23:25 97.7 F 69 18 123/75 100 06/14/21 20:52 75 103/58 L PG Care Time/CCT Total # of Minutes Spent Total Time Spent with Patient: Total time spent is greater than 50% in coordination of care (as documented) at patient's floor/unit and/or counseling patient: Coding Level of Care Code 72771 Subseq Hosp Care Lvl 2 Diagnoses Influenza A J10.1 Fever R50.9 SIRS (systemic inflammatory response syndrome) R65.10 Elevated serum creatinine R79.89 Alzheimer disease G30.9; F02.80 Neurogenic claudication due to lumbar spinal stenosis M48.062 GERD (gastroesophageal reflux disease) K21.9 HTN (hypertension) I10 High cholesterol E78.00
[2021-06-15] MEDS: ENOXAPARIN INJ 40 MG/0.4 ML SYR SQ SCH (10:13)
[2021-06-15] MEDS: METOPROLOL TARTRATE 25 MG TAB PO SCH ×2 (10:14→20:45)
[2021-06-15] MEDS: OSELTAMIVIR PHOSPHATE SUSP 30 MG/5 ML UDP PO SCH ×2 (10:14→20:46)
[2021-06-15] MEDS: DONEPEZIL HCL 10 MG TAB PO SCH (20:45)
[2021-06-15] MEDS: BIMATOPROST 0.01% OP SOLN 2.5 ML BTL OP SCH (20:45)
[2021-06-15] MEDS: MIRTAZAPINE TAB 15 MG TAB PO SCH (20:46)
[2021-06-16] MEDS: ASCORBIC ACID 500 MG TAB PO SCH (08:03)
[2021-06-16] MEDS: CHOLECALCIFEROL 1,000 UNITS 25 MCG TAB PO SCH (08:03)
[2021-06-16] MEDS: SIMVASTATIN 40 MG TAB PO SCH (08:04)
[2021-06-16] MEDS: METOPROLOL TARTRATE 25 MG TAB PO SCH (08:04)
[2021-06-16] MEDS: PANTOprazole 40 MG TAB PO SCH (08:04)
[2021-06-16] MEDS: ENOXAPARIN INJ 40 MG/0.4 ML SYR SQ SCH (08:05)
[2021-06-16] MEDS: NAMENDA 28 MG PO SCH (08:06)
[2021-06-16] MEDS: TIMOLOL MALEATE 0.5% OP SOLN 5 ML BTL OP SCH (08:08)
[2021-06-16 08:22] LABS: Creatinine Clr Calc Pharmacy 48.9 ml/min; Est GFR (African American) 73.8 ml/min; Est GFR (Non-African American) 63.7 ml/min
[2021-06-16] MEDS: OSELTAMIVIR PHOSPHATE SUSP 30 MG/5 ML UDP PO SCH (12:46)
--- NOTE | 2021-06-16 20:20 | Discharge Summary ---
Date of Service June 16, 2021 Admission HPI Per Admitting Provider This patient is an 85-year-old male with a history of advanced Alzheimer's dementia with insomnia and lumbar spinal stenosis, HTN, hyperlipidemia, GERD, and glaucoma, who presents to the ER from a dementia unit at [facility] for altered mental status. He also had a fall yesterday and then staff at the personal care facility noticed he had a low-grade fever and was not acting like his usual self. His reported to the ER physician that he is less conversant-typically he can speak in full sentences but was only giving one-word answers and appeared more confused than usual. In the ER, he had a work-up for his fall to include a CT of the head, cervical spine, lumbar spine, and abdomen/pelvis, as well as pelvis x-rays and a chest x-ray. All of these imaging studies were negative for anything acute. His laboratory work-up showed a mild thrombocytopenia at 120, but no leukocytosis. His creatinine was elevated at 1.63 and BUN elevated at 27 with no baseline to compare to. A lactate was normal, troponin was negative, LFTs were normal, procalcitonin was negative at 0.21. A urinalysis showed 3+ protein and 1+ ketones but was negative for infection otherwise. A Covid-19 test was negative. A flu test was added on at the time of admission and later came back positive for influenza A. He had a temperature of 37.9, had mild tachycardia with a heart rate of 100 and mild tachypnea with a respiratory rate of 28 with a normal pulse ox of 96% on room air. In the ER, blood cultures were drawn but no antibiotics were given as there was an unclear source of infection initially, but now found to have influenza A He was given 1 L of normal saline. He will be admitted for SIRS criteria and acute encephalopathy secondary to influenza A and dehydration. Principal Diagnosis Influenza A infection Small decubitus ulcer present Dementia Discharge Exam The patient appeared pleasantly confused somewhat resistant to suggestion Vital signs as documented. Lungs are clear to auscultation and appear unlabored Cardiac exam, Rhythm is regular.. No murmurs, rubs or gallops. Skin is with notation of small sacral decubitus. Appearing chronic scalp scaliness from previous skin cancer surgeries recommending follow-up Psychologically is with concerns for significant dementia Discharge Data Allergies Allergy/AdvReac Type Severity Reaction Status Date / Time No Known Allergies Allergy Verified 06/13/21 10:39 Consultations 06/13/21 15:23 ED Decision to Admit Stat Ordered Studies 06/13/21 09:21 CT cervical spine wo con Stat CT head/brain wo con Stat 06/13/21 13:58 CT lumbar spine wo con Stat 06/13/21 13:59 CT abd pelvis wo con Stat Hospital Course (1) Influenza A: Presents with fever, lethargy, acute metabolic encephalopathy secondary to influenza A Sepsis due to Influenza A e/b +2/4 SIRS criteria and SOFA score of 4 treated and resolved Lives in a dementia unit at a personal care facility - isolation precautions for influenza appropriate at their facility -Start Tamiflu to be renally dosed at 30 mg p.o. twice daily pleated total of 5- day course -Tolerating advancement of diet On room air without need of oxygen supplementation (2) Fever: Secondary to influenza A as aboveresolved Covid-19 test is negative Urinalysis and chest x-ray negative CT of the abdomen/pelvis negative for infection CT head negative for intracranial hemorrhage No evidence of DVT on examination -No antibiotics needed at this point (3) SIRS (systemic inflammatory response syndrome): Secondary to influenza as above resolved (4) Elevated serum creatinine: Creatinine elevated at 1.63 on admission, unclear what his baseline is Hydrate with IV fluids, Cr improved to 1.27 this would likely represent mild HOLDEN, resolved HOLDEN with a history of chronic kidney disease stage II Hold home Lasix and losartan blood pressure is stable and reevaluation as an outpatient (5) Alzheimer disease: Advanced as per neurology notes Continue Namenda and Aricept Typically can converse in sentences as per 's report with ER physician He does reside in a dementia unit at a personal residential (6) Neurogenic claudication due to lumbar spinal stenosis: No acute issues (7) GERD (gastroesophageal reflux disease): Continue home PPI (8) HTN (hypertension): Blood pressures here are controlled Holding home losartan for possible acute kidney injury Continue home metoprolol (9) High cholesterol: Continue simvastatin DNR/DNI as per 's discussion with the ER physician spoke to daughter after unable to reach daughter seems satisfied with his hospital course although concerned with his skin breakdown and need for physical therapy at his personal residential Total Time Total Time Spent Total Time Spent (In Minutes): It required greater than 30 minutes to prepare this patient for discharge Discharge Plan Discharge Items Patient Disposition: Personal Long-Term Reason For Visit: ACUTE ENCEPHALOPATHY, SIRS Discharge Diagnosis: influenza pneumonia confusion resolved sepsis resolved Activity: Per Instructions section Activity Comment: will have PT/OT eval and treat Non-emergency contact: Primary Care Provider Call non-emergency contact if: your symptoms worsen and you have a fever Follow-up/Referrals: Henrry Brito D.O. [Primary Care Provider] - Diet: Regular Addtl Attending Provider Instructions: Droplet precautions should be enforced for influenza for 7 days after illness onset or until 24 hours after the resolution of fever and respiratory symptoms, whichever is longer, while a patient is in a healthcare facility. REportedly the pts first symptoms were one day prior to presentation or 06/12/21 If on Droplet Precautions, thepatient should wear a surgical- type face mask and follow cough etiquettewhen outside of their room. please stop lasix and losartan, have a pcp visit this week to determine if these can be restarted please keep and eye on his sacral skin breakdown with cleaning it daily with soap and water and providing some padded dressing, encourage off loading and re positioning Pending Studies at Discharge: No Stand-Alone Forms: My [employer], Smoking Cessation Skilled Items Patient informed of condition?: Yes DNR: Yes Discharge Level of Care: Other Communicable Disease: Yes (influenza A) Discharge Prognosis: Improving Lines: None Urinary Catheter: No Medications and DC Order Prescriptions: New oseltamivir [Tamiflu] 6 mg/mL Suspension For Reconstitution 30 mg PO BID Qty: 35 RF: 0 Continued memantine [Namenda XR] 28 mg capsule,sprinkle,ER 24hr 28 mg PO DAILY Qty: 90 RF: 1 donepezil 10 mg tablet 10 mg PO HS 90 Days Qty: 90 RF: 1 cholecalciferol (vitamin D3) 2,000 unit capsule 2,000 unit PO DAILY RF: 0 metoprolol tartrate 25 mg tablet 25 mg PO BID Qty: 60 RF: 0 simvastatin 40 mg tablet 40 mg PO DAILY RF: 0 pantoprazole 40 mg tablet,delayed release (DR/EC) 40 mg PO DAILY RF: 0 Lumigan 0.01 % drops 1 drops OP HS RF: 0 albuterol sulfate 2.5 mg /3 mL (0.083 %) Solution For Nebulization 2.5 mg INHALATION Q4H PRN (Reason: Shortness Of Breath Or Wheezing) RF: 0 benzonatate 200 mg Capsule 200 mg PO TID PRN (Reason: Cough) RF: 0 ascorbic acid (vitamin C) [Vitamin C] 500 mg Tablet 500 mg PO DAILY RF: 0 timolol 0.5 % Drops 1 drp OPHTHALMIC (EYE) DAILY RF: 0 albuterol sulfate 90 mcg/actuation Hfa Aerosol Inhaler 2 puff INHALATION Q4H PRN (Reason: Shortness Of Breath Or Wheezing) RF: 0 PreserVision AREDS-2 250-90-40-1 mg Capsule 1 tab PO BID RF: 0 mirtazapine 15 mg tablet 22.5 mg PO HS RF: 0 Discontinued losartan 50 mg tablet 50 mg PO DAILY RF: 0 furosemide [Lasix] 40 mg tablet 40 mg PO DAILY PRN (Reason: Fluid Retention) RF: 0 Discharge Orders: Discharge Order (Routine); Ordered 06/16/21 Ordered By: Myke Smith Admission Data Admit Date/Time: 06/13/21 16:09 Attending Provider: Myke Smith Admit Provider: Debbie Alaniz Primary Care Provider: Henrry Brito Other Providers: Debbie Alaniz Other Interventions: Discharge Summary Assessment (RN) Last Done: 06/16/21 12:24 Coding Level of Care Code D/C DAY MANAGEMENT >30 MINS Diagnoses Influenza A J10.1 Fever R50.9 SIRS (systemic inflammatory response syndrome) R65.10 Elevated serum creatinine R79.89 Alzheimer disease G30.9; F02.80 Neurogenic claudication due to lumbar spinal stenosis M48.062 GERD (gastroesophageal reflux disease) K21.9 HTN (hypertension) I10 High cholesterol E78.00
== END 2021-06-16 13:26 | disposition home or self-care (01) | DRG 871 ==
LOC: ED 09:13 → EDINP 16:09 → SUATTDRO 16:09 → 3E 22:00